=== PATIENT | male | born 1950 | race Caucasian/White ===

== ENCOUNTER 2020-10-23 09:38 | Inpatient (IN) ==
[2020-10-23] MEDS ORDERED: SODIUM CHLORIDE 0.9% 1,000 ML IV STA (10:25)
[2020-10-23 11:03] LABS: Eosinophils % 0.2 % (0.00-10.9); Hematocrit 42.7 VOL% (42.0-52.0); Hemoglobin 14.5 GM/DL (14.0-18.0); Immature Granulocytes % 0.4 %; Immature Granulocytes Absolute 0.02 #; Lymphocytes # 0.5 10*3/uL (1.4-4.0); Lymphocytes % 9.8 % (21.2-54.2); Mean Corpuscular Volume 94.9 FL (87-102); Mean Platelet Volume 10.5 FL (9.6-12.0); Monocytes % 7.3 % (1.7-12.7); Neutrophils % 82.3 % (38.7-73.9); Platelet Count 111 T/CUMM (130-400); Red Cell Distribution Width 14.4 % (9.3-17.3); White Blood Count 4.8 T/CUMM (4-12)
[2020-10-23 11:23] LABS: Microcytosis Slight; Ovalocytes Slight; Platelet Estimate Decreased
[2020-10-23 11:24] LABS: Albumin 3.3 G/DL (3.4-5.0); Bilirubin,Total 0.4 MG/DL (0.2-1.0); Calcium 8.5 MG/DL (8.5-10.1); Osmolality,Calculated 295.4 MOS/KG (273-304); Total Protein 6.3 G/DL (6.4-8.3)
[2020-10-23 11:28] LABS: Ferritin 842.1 ng/ml (26-388); Troponin I < 0.015 NG/ML (0.00-0.045)
[2020-10-23] MEDS ORDERED: cefTRIAXone 1,000 MG in SODIUM CHLORIDE 0.9% 100 ML IV STA (11:50)
[2020-10-23] MEDS ORDERED: SODIUM CHLORIDE 0.9% 1,000 ML IV SCH (14:52)
[2020-10-23] MEDS ORDERED: AZITHROMYCIN INJ 500 MG in SODIUM CHLORIDE 0.9% 250 ML IV ONE (14:52)
[2020-10-23] MEDS ORDERED: ONDANSETRON 4 MG/2 ML VIAL IV PRN (14:52)
[2020-10-23] MEDS: cefTRIAXone 1,000 MG in SYRINGE 1 EACH IV SCH (15:31)
[2020-10-23] MEDS: DEXAMETHASONE 4 MG/1 ML VIAL IV SCH (15:50)
[2020-10-23] MEDS: SODIUM CHLORIDE 0.9% 1,000 ML IV SCH ×2 (15:51→22:55)
[2020-10-23] MEDS: ZINC SULFATE 220 MG CAPSULE PO SCH (15:52)
[2020-10-23] MEDS: CHOLECALCIFEROL 1,000 UNIT TABLET PO SCH ×2 (15:52→16:15)
[2020-10-23] MEDS ORDERED: ALUMINUM/MAGNES/SIMETH MAX STR 30 ML UDCUP PO PRN (16:30)
[2020-10-23] MEDS: ACETAMINOPHEN 325 MG TABLET PO PRN ×2 (17:18→23:16)
[2020-10-23] MEDS: DOCUSATE SODIUM 100 MG CAPSULE PO SCH (21:47)
[2020-10-23] MEDS: TAMSULOSIN 0.4 MG CAPSULE PO SCH (21:47)
[2020-10-24] MEDS: DEXAMETHASONE 4 MG/1 ML VIAL IV SCH ×2 (02:46→16:00)
[2020-10-24 05:32] LABS: Hematocrit 39.7 VOL% (42.0-52.0); Hemoglobin 13.4 GM/DL (14.0-18.0); Immature Granulocytes % 0.6 %; Immature Granulocytes Absolute 0.02 #; Lymphocytes # 0.5 10*3/uL (1.4-4.0); Lymphocytes % 14.1 % (21.2-54.2); Mean Corpuscular HGB Conc 33.8 GM/DL (32-36); Mean Corpuscular Volume 94.1 FL (87-102); Mean Platelet Volume 10.3 FL (9.6-12.0); Monocytes % 3.2 % (1.7-12.7); Neutrophils % 82.1 % (38.7-73.9); Platelet Count 121 T/CUMM (130-400); Red Blood Count 4.22 MC/CUMM (3.8-5.5); Red Cell Distribution Width 14.4 % (9.3-17.3); White Blood Count 3.5 T/CUMM (4-12)
[2020-10-24 05:54] LABS: Burr Cells Slight; Microcytosis Slight; Ovalocytes Slight
[2020-10-24] MEDS: SODIUM CHLORIDE 0.9% 1,000 ML IV SCH ×3 (06:23→22:35)
[2020-10-24 06:28] LABS: Alanine Aminotransferase 51 U/L (16-61); Albumin 2.6 G/DL (3.4-5.0); Alkaline Phosphatase 67 U/L (45-117); Aspartate Amino Transferase 56 U/L (0-37); Bilirubin,Total < 0.39 MG/DL (0.2-1.0); Blood Urea Nitrogen 62 MG/DL (7-18); Estimated Glom Filtration Rate 26 ML/MIN; Glucose 132 MG/DL (74-106); Osmolality,Calculated 302.1 MOS/KG (273-304)
[2020-10-24 06:45] LABS: Bilirubin,Urine Negative (Negative); Blood, Urine Negative (Negative); Glucose,Urine (UA) Negative (Negative); Ketones,Urine Negative (Negative); Nitrite,Urine Negative (Negative); Protein,Urine 30 MG/DL; RBC,Urine 1 /HPF (0-4); Urine Appearance CLEAR (Clear); Urine Color Straw (Yellow); Urine Specific Gravity 1.011 (1.001-1.035); Urine Urobilinogen < 2.0 EU/DL (0.2-1.0); WBC,Urine 1 /HPF (0-6)
[2020-10-24] MEDS: MULTIVITAMIN (CENTRUM) TABLET PO SCH (10:07)
[2020-10-24] MEDS: TAMSULOSIN 0.4 MG CAPSULE PO SCH ×2 (10:07→20:28)
[2020-10-24] MEDS: CHOLECALCIFEROL 1,000 UNIT TABLET PO SCH ×2 (10:07)
[2020-10-24] MEDS: ASPIRIN EC 81 MG TABLET PO SCH (10:07)
[2020-10-24] MEDS: DOCUSATE SODIUM 100 MG CAPSULE PO SCH ×2 (10:07→20:28)
[2020-10-24] MEDS: ZINC SULFATE 220 MG CAPSULE PO SCH (10:07)
[2020-10-24] MEDS: AZITHROMYCIN 250 MG TABLET PO SCH (10:07)
[2020-10-24] MEDS: ATORVASTATIN 40 MG TABLET PO SCH (10:07)
[2020-10-24] MEDS: PANTOPRAZOLE 40 MG TABLET PO SCH (10:07)
[2020-10-24] MEDS: FLUTICASONE 50 MCG NASAL SPRAY 16 GM BOTTLE BOTH NARES SCH (10:07)
[2020-10-24] MEDS: ESCITALOPRAM 10 MG TABLET PO SCH (10:07)
[2020-10-24] MEDS: allopurinoL 300 MG TABLET PO SCH (10:08)
[2020-10-24] MEDS ORDERED: AZITHROMYCIN INJ 250 MG in SODIUM CHLORIDE 0.9% 250 ML IV SCH (14:30)
[2020-10-24] MEDS: cefTRIAXone 1,000 MG in SYRINGE 1 EACH IV SCH (17:00)
[2020-10-24] MEDS: ACETAMINOPHEN 325 MG TABLET PO PRN (20:28)
[2020-10-25] MEDS: DEXAMETHASONE 4 MG/1 ML VIAL IV SCH ×2 (02:54→15:40)
[2020-10-25 05:20] LABS: Basophils % 0.1 % (0.0-0.8); Hematocrit 39.6 VOL% (42.0-52.0); Hemoglobin 13.6 GM/DL (14.0-18.0); Immature Granulocytes Absolute 0.16 #; Lymphocytes # 0.6 10*3/uL (1.4-4.0); Lymphocytes % 3.8 % (21.2-54.2); Mean Corpuscular HGB Conc 34.3 GM/DL (32-36); Mean Platelet Volume 10.5 FL (9.6-12.0); Monocytes % 2.5 % (1.7-12.7); Neutrophils % 92.6 % (38.7-73.9); Platelet Count 132 T/CUMM (130-400); Red Blood Count 4.17 MC/CUMM (3.8-5.5); Red Cell Distribution Width 14.5 % (9.3-17.3); White Blood Count 15.7 T/CUMM (4-12)
[2020-10-25 05:45] LABS: Hypochromasia Slight; Lymphocytes 4 % (20-55); Microcytosis Slight; Ovalocytes Slight; Platelet Estimate Normal; Segmented Neutrophils 89 % (50-85); Total Cells Counted 100
[2020-10-25] MEDS: SODIUM CHLORIDE 0.9% 1,000 ML IV SCH ×3 (06:35→23:30)
[2020-10-25 06:51] LABS: Albumin 2.6 G/DL (3.4-5.0); Bilirubin,Total 0.6 MG/DL (0.2-1.0); Osmolality,Calculated 298.1 MOS/KG (273-304); Total Protein 5.9 G/DL (6.4-8.3)
[2020-10-25] MEDS: CHOLECALCIFEROL 1,000 UNIT TABLET PO SCH ×3 (08:49→08:51)
[2020-10-25] MEDS: PANTOPRAZOLE 40 MG TABLET PO SCH (08:49)
[2020-10-25] MEDS: ZINC SULFATE 220 MG CAPSULE PO SCH (08:49)
[2020-10-25] MEDS: ASPIRIN EC 81 MG TABLET PO SCH (08:49)
[2020-10-25] MEDS: allopurinoL 300 MG TABLET PO SCH (08:49)
[2020-10-25] MEDS: DOCUSATE SODIUM 100 MG CAPSULE PO SCH ×2 (08:49→20:30)
[2020-10-25] MEDS: ATORVASTATIN 40 MG TABLET PO SCH (08:49)
[2020-10-25] MEDS: AZITHROMYCIN 250 MG TABLET PO SCH (08:49)
[2020-10-25] MEDS: TAMSULOSIN 0.4 MG CAPSULE PO SCH ×2 (08:50→20:30)
[2020-10-25] MEDS: ESCITALOPRAM 10 MG TABLET PO SCH (08:50)
[2020-10-25] MEDS: MULTIVITAMIN (CENTRUM) TABLET PO SCH (08:50)
[2020-10-25] MEDS: FLUTICASONE 50 MCG NASAL SPRAY 16 GM BOTTLE BOTH NARES SCH (08:50)
[2020-10-25] MEDS ORDERED: SODIUM CHLORIDE 0.9% 1,000 ML IV PRN (13:09)
[2020-10-25] MEDS: cefTRIAXone 1,000 MG in SYRINGE 1 EACH IV SCH (15:40)
[2020-10-26] MEDS: DEXAMETHASONE 4 MG/1 ML VIAL IV SCH ×2 (02:10→16:02)
[2020-10-26 07:20] LABS: Basophils % 0.1 % (0.0-0.8); Hematocrit 37.8 VOL% (42.0-52.0); Hemoglobin 12.9 GM/DL (14.0-18.0); Immature Granulocytes % 2.1 %; Immature Granulocytes Absolute 0.34 #; Lymphocytes # 0.5 10*3/uL (1.4-4.0); Lymphocytes % 3.2 % (21.2-54.2); Mean Corpuscular HGB Conc 34.1 GM/DL (32-36); Mean Platelet Volume 10.1 FL (9.6-12.0); Monocytes % 2.5 % (1.7-12.7); Neutrophils % 92.1 % (38.7-73.9); Platelet Count 148 T/CUMM (130-400); Red Blood Count 3.98 MC/CUMM (3.8-5.5); Red Cell Distribution Width 14.6 % (9.3-17.3)
[2020-10-26 07:40] LABS: Hypochromasia Slight; Lymphocytes 1 % (20-55); Microcytosis Slight; Ovalocytes Slight; Segmented Neutrophils 98 % (50-85); Total Cells Counted 100
[2020-10-26 07:41] LABS: Acanthocytes Few; Platelet Estimate Adequate
[2020-10-26 07:47] LABS: Albumin 2.5 G/DL (3.4-5.0); Bilirubin,Total 0.4 MG/DL (0.2-1.0); Calcium 7.8 MG/DL (8.5-10.1); Osmolality,Calculated 302.7 MOS/KG (273-304); Total Protein 5.8 G/DL (6.4-8.3)
[2020-10-26] MEDS: ZINC SULFATE 220 MG CAPSULE PO SCH (10:12)
[2020-10-26] MEDS: ESCITALOPRAM 10 MG TABLET PO SCH (10:12)
[2020-10-26] MEDS: AZITHROMYCIN 250 MG TABLET PO SCH (10:12)
[2020-10-26] MEDS: FLUTICASONE 50 MCG NASAL SPRAY 16 GM BOTTLE BOTH NARES SCH (10:12)
[2020-10-26] MEDS: ATORVASTATIN 40 MG TABLET PO SCH (10:12)
[2020-10-26] MEDS: DOCUSATE SODIUM 100 MG CAPSULE PO SCH ×2 (10:12→20:25)
[2020-10-26] MEDS: allopurinoL 300 MG TABLET PO SCH (10:12)
[2020-10-26] MEDS: MULTIVITAMIN (CENTRUM) TABLET PO SCH (10:12)
[2020-10-26] MEDS: CHOLECALCIFEROL 1,000 UNIT TABLET PO SCH ×2 (10:12)
[2020-10-26] MEDS: PANTOPRAZOLE 40 MG TABLET PO SCH (10:12)
[2020-10-26] MEDS: TAMSULOSIN 0.4 MG CAPSULE PO SCH ×2 (10:12→20:25)
[2020-10-26] MEDS: ASPIRIN EC 81 MG TABLET PO SCH (10:12)
[2020-10-26] MEDS: cefTRIAXone 1,000 MG in SYRINGE 1 EACH IV SCH (16:02)
[2020-10-26] MEDS: ACETAMINOPHEN 325 MG TABLET PO PRN (20:40)
[2020-10-27] MEDS: DEXAMETHASONE 4 MG/1 ML VIAL IV SCH ×2 (02:05→15:15)
[2020-10-27 06:42] LABS: Basophils % 0.2 % (0.0-0.8); Hematocrit 38.8 VOL% (42.0-52.0); Hemoglobin 13.3 GM/DL (14.0-18.0); Immature Granulocytes Absolute 0.48 #; Lymphocytes # 0.5 10*3/uL (1.4-4.0); Lymphocytes % 4.4 % (21.2-54.2); Mean Corpuscular HGB Conc 34.3 GM/DL (32-36); Mean Corpuscular Volume 94.6 FL (87-102); Mean Platelet Volume 9.9 FL (9.6-12.0); Monocytes % 2.2 % (1.7-12.7); Neutrophils % 89.2 % (38.7-73.9); Platelet Count 156 T/CUMM (130-400); Red Cell Distribution Width 14.5 % (9.3-17.3); White Blood Count 12.1 T/CUMM (4-12)
[2020-10-27 08:19] LABS: Albumin 2.5 G/DL (3.4-5.0); Bilirubin,Total 0.4 MG/DL (0.2-1.0); Calcium 8.2 MG/DL (8.5-10.1); Osmolality,Calculated 295.3 MOS/KG (273-304); Total Protein 6.1 G/DL (6.4-8.3)
[2020-10-27 09:03] LABS: Band Neutrophils 1 % (0-10); Lymphocytes 1 % (20-55); Polychromasia Slight; Segmented Neutrophils 93 % (50-85); Total Cells Counted 100
[2020-10-27 09:04] LABS: Platelet Estimate Adequate
[2020-10-27] MEDS: MULTIVITAMIN (CENTRUM) TABLET PO SCH (09:13)
[2020-10-27] MEDS: allopurinoL 300 MG TABLET PO SCH (09:13)
[2020-10-27] MEDS: ATORVASTATIN 40 MG TABLET PO SCH (09:13)
[2020-10-27] MEDS: ESCITALOPRAM 10 MG TABLET PO SCH (09:13)
[2020-10-27] MEDS: DOCUSATE SODIUM 100 MG CAPSULE PO SCH ×2 (09:13→20:40)
[2020-10-27] MEDS: CHOLECALCIFEROL 1,000 UNIT TABLET PO SCH ×2 (09:13→09:54)
[2020-10-27] MEDS: ZINC SULFATE 220 MG CAPSULE PO SCH (09:13)
[2020-10-27] MEDS: PANTOPRAZOLE 40 MG TABLET PO SCH (09:13)
[2020-10-27] MEDS: ASPIRIN EC 81 MG TABLET PO SCH (09:13)
[2020-10-27] MEDS: TAMSULOSIN 0.4 MG CAPSULE PO SCH ×2 (09:13→20:40)
[2020-10-27] MEDS: AZITHROMYCIN 250 MG TABLET PO SCH (09:13)
[2020-10-27] MEDS: FLUTICASONE 50 MCG NASAL SPRAY 16 GM BOTTLE BOTH NARES SCH (09:14)
[2020-10-27] MEDS: SODIUM CHLORIDE 0.65% NASAL SPRAY 45 ML BOTTLE BOTH NARES PRN (14:01)
[2020-10-27] MEDS: cefTRIAXone 1,000 MG in SYRINGE 1 EACH IV SCH (15:17)
[2020-10-27] MEDS: ENOXAPARIN 30 MG/0.3 ML SYRINGE SUBCUT SCH (22:55)
[2020-10-28] MEDS: DEXAMETHASONE 4 MG/1 ML VIAL IV SCH ×2 (02:20→15:20)
[2020-10-28 06:48] LABS: Basophils # 0.1 10*3/uL (0.0-0.2); Basophils % 0.3 % (0.0-0.8); Hematocrit 38.2 VOL% (42.0-52.0); Hemoglobin 13.2 GM/DL (14.0-18.0); Immature Granulocytes % 3.9 %; Immature Granulocytes Absolute 0.62 #; Lymphocytes # 0.7 10*3/uL (1.4-4.0); Lymphocytes % 4.5 % (21.2-54.2); Mean Corpuscular HGB Conc 34.6 GM/DL (32-36); Mean Corpuscular Volume 94.1 FL (87-102); Mean Platelet Volume 10.2 FL (9.6-12.0); Monocytes % 3.7 % (1.7-12.7); NRBC # 0.02 10*3/uL; Neutrophils % 87.6 % (38.7-73.9); Platelet Count 180 T/CUMM (130-400); Red Blood Count 4.06 MC/CUMM (3.8-5.5); Red Cell Distribution Width 14.2 % (9.3-17.3); White Blood Count 16.1 T/CUMM (4-12)
[2020-10-28 07:05] LABS: Albumin 2.6 G/DL (3.4-5.0); Bilirubin,Total 0.8 MG/DL (0.2-1.0); Calcium 8.2 MG/DL (8.5-10.1); Osmolality,Calculated 296.3 MOS/KG (273-304); Total Protein 6.2 G/DL (6.4-8.3)
[2020-10-28] MEDS: AZITHROMYCIN 250 MG TABLET PO SCH (09:40)
[2020-10-28] MEDS: allopurinoL 300 MG TABLET PO SCH (09:40)
[2020-10-28] MEDS: ASPIRIN EC 81 MG TABLET PO SCH (09:40)
[2020-10-28] MEDS: FLUTICASONE 50 MCG NASAL SPRAY 16 GM BOTTLE BOTH NARES SCH (09:40)
[2020-10-28] MEDS: DOCUSATE SODIUM 100 MG CAPSULE PO SCH ×2 (09:40→20:20)
[2020-10-28] MEDS: CHOLECALCIFEROL 1,000 UNIT TABLET PO SCH ×2 (09:40→10:11)
[2020-10-28] MEDS: PANTOPRAZOLE 40 MG TABLET PO SCH (09:40)
[2020-10-28] MEDS: ATORVASTATIN 40 MG TABLET PO SCH (09:40)
[2020-10-28] MEDS: MULTIVITAMIN (CENTRUM) TABLET PO SCH (09:40)
[2020-10-28] MEDS: ZINC SULFATE 220 MG CAPSULE PO SCH (09:40)
[2020-10-28] MEDS: TAMSULOSIN 0.4 MG CAPSULE PO SCH ×2 (09:40→20:20)
[2020-10-28] MEDS: ESCITALOPRAM 10 MG TABLET PO SCH (09:40)
[2020-10-28 12:36] LABS: Lymphocytes 6 % (20-55); Segmented Neutrophils 93 % (50-85); Total Cells Counted 100
[2020-10-28 12:37] LABS: Anisocytosis 1+; Microcytosis Slight; Platelet Estimate Adequate
[2020-10-28] MEDS: cefTRIAXone 1,000 MG in SYRINGE 1 EACH IV SCH (15:20)
[2020-10-28] MEDS: ENOXAPARIN 30 MG/0.3 ML SYRINGE SUBCUT SCH (20:20)
[2020-10-28] MEDS: ACETAMINOPHEN 325 MG TABLET PO PRN (20:20)
[2020-10-29] MEDS: DEXAMETHASONE 4 MG/1 ML VIAL IV SCH ×2 (02:35→14:07)
[2020-10-29] MEDS: DOCUSATE SODIUM 100 MG CAPSULE PO SCH ×2 (09:18→20:30)
[2020-10-29] MEDS: ESCITALOPRAM 10 MG TABLET PO SCH (09:18)
[2020-10-29] MEDS: allopurinoL 300 MG TABLET PO SCH (09:18)
[2020-10-29] MEDS: ATORVASTATIN 40 MG TABLET PO SCH (09:18)
[2020-10-29] MEDS: MULTIVITAMIN (CENTRUM) TABLET PO SCH (09:18)
[2020-10-29] MEDS: TAMSULOSIN 0.4 MG CAPSULE PO SCH ×2 (09:18→20:30)
[2020-10-29] MEDS: PANTOPRAZOLE 40 MG TABLET PO SCH (09:18)
[2020-10-29] MEDS: ASPIRIN EC 81 MG TABLET PO SCH (09:18)
[2020-10-29] MEDS: AZITHROMYCIN 250 MG TABLET PO SCH (09:18)
[2020-10-29] MEDS: FLUTICASONE 50 MCG NASAL SPRAY 16 GM BOTTLE BOTH NARES SCH (09:18)
[2020-10-29] MEDS: CHOLECALCIFEROL 1,000 UNIT TABLET PO SCH ×2 (09:18→09:19)
[2020-10-29] MEDS: ZINC SULFATE 220 MG CAPSULE PO SCH (09:19)
[2020-10-29] MEDS: cefTRIAXone 1,000 MG in SYRINGE 1 EACH IV SCH (14:07)
[2020-10-29] MEDS: ACETAMINOPHEN 325 MG TABLET PO PRN (20:30)
[2020-10-29] MEDS: ENOXAPARIN 30 MG/0.3 ML SYRINGE SUBCUT SCH (20:30)
[2020-10-30] MEDS: DEXAMETHASONE 4 MG/1 ML VIAL IV SCH ×2 (01:33→14:01)
[2020-10-30 06:31] LABS: Basophils % 0.2 % (0.0-0.8); Hematocrit 35.3 VOL% (42.0-52.0); Hemoglobin 12.1 GM/DL (14.0-18.0); Immature Granulocytes % 4.3 %; Immature Granulocytes Absolute 0.47 #; Lymphocytes # 0.3 10*3/uL (1.4-4.0); Lymphocytes % 3.1 % (21.2-54.2); Mean Corpuscular HGB Conc 34.3 GM/DL (32-36); Mean Corpuscular Volume 92.7 FL (87-102); Mean Platelet Volume 10.5 FL (9.6-12.0); Monocytes % 2.1 % (1.7-12.7); NRBC # 0.02 10*3/uL; Neutrophils % 90.3 % (38.7-73.9); Platelet Count 168 T/CUMM (130-400); Red Blood Count 3.81 MC/CUMM (3.8-5.5); Red Cell Distribution Width 14.2 % (9.3-17.3); White Blood Count 10.8 T/CUMM (4-12)
[2020-10-30 06:56] LABS: Lymphocytes 4 % (20-55); Segmented Neutrophils 94 % (50-85); Total Cells Counted 100
[2020-10-30 06:57] LABS: Anisocytosis 1+; Burr Cells Few; Hypersegmented Neutrophil Few; Macrocytosis Slight; Platelet Estimate Normal
[2020-10-30 07:01] LABS: Albumin 2.2 G/DL (3.4-5.0); Bilirubin,Total 1.7 MG/DL (0.2-1.0); Calcium 8.3 MG/DL (8.5-10.1); Osmolality,Calculated 299.4 MOS/KG (273-304); Total Protein 6.1 G/DL (6.4-8.3)
[2020-10-30] MEDS: TAMSULOSIN 0.4 MG CAPSULE PO SCH ×2 (08:48→20:30)
[2020-10-30] MEDS: ZINC SULFATE 220 MG CAPSULE PO SCH (08:48)
[2020-10-30] MEDS: PANTOPRAZOLE 40 MG TABLET PO SCH (08:48)
[2020-10-30] MEDS: ATORVASTATIN 40 MG TABLET PO SCH (08:48)
[2020-10-30] MEDS: ASPIRIN EC 81 MG TABLET PO SCH (08:48)
[2020-10-30] MEDS: CHOLECALCIFEROL 1,000 UNIT TABLET PO SCH ×2 (08:48→08:49)
[2020-10-30] MEDS: MULTIVITAMIN (CENTRUM) TABLET PO SCH (08:48)
[2020-10-30] MEDS: AZITHROMYCIN 250 MG TABLET PO SCH (08:48)
[2020-10-30] MEDS: DOCUSATE SODIUM 100 MG CAPSULE PO SCH ×2 (08:48→20:30)
[2020-10-30] MEDS: allopurinoL 300 MG TABLET PO SCH (08:48)
[2020-10-30] MEDS: ESCITALOPRAM 10 MG TABLET PO SCH (08:48)
[2020-10-30] MEDS: FLUTICASONE 50 MCG NASAL SPRAY 16 GM BOTTLE BOTH NARES SCH (08:48)
[2020-10-30] MEDS: cefTRIAXone 1,000 MG in SYRINGE 1 EACH IV SCH (14:02)
[2020-10-30] MEDS: ACETAMINOPHEN 325 MG TABLET PO PRN (20:30)
[2020-10-30] MEDS: ENOXAPARIN 30 MG/0.3 ML SYRINGE SUBCUT SCH (20:30)
[2020-10-31] MEDS: DEXAMETHASONE 4 MG/1 ML VIAL IV SCH ×2 (02:35→13:59)
[2020-10-31 06:19] LABS: Basophils % 0.2 % (0.0-0.8); Hematocrit 37.7 VOL% (42.0-52.0); Hemoglobin 12.9 GM/DL (14.0-18.0); Immature Granulocytes % 4.6 %; Immature Granulocytes Absolute 0.45 #; Lymphocytes # 0.3 10*3/uL (1.4-4.0); Mean Corpuscular HGB Conc 34.2 GM/DL (32-36); Mean Corpuscular Volume 92.9 FL (87-102); Mean Platelet Volume 10.3 FL (9.6-12.0); Monocytes % 2.9 % (1.7-12.7); Neutrophils % 89.3 % (38.7-73.9); Platelet Count 186 T/CUMM (130-400); Red Blood Count 4.06 MC/CUMM (3.8-5.5); Red Cell Distribution Width 14.2 % (9.3-17.3); White Blood Count 9.9 T/CUMM (4-12)
[2020-10-31 06:41] LABS: Albumin 2.2 G/DL (3.4-5.0); Bilirubin,Total 1.7 MG/DL (0.2-1.0); Calcium 8.4 MG/DL (8.5-10.1); Osmolality,Calculated 302.1 MOS/KG (273-304); Total Protein 6.2 G/DL (6.4-8.3)
[2020-10-31 06:58] LABS: Hypochromasia 1+; Lymphocytes 5 % (20-55); Microcytosis 1+; Ovalocytes Slight; Platelet Estimate Adequate; Segmented Neutrophils 92 % (50-85); Total Cells Counted 100
[2020-10-31] MEDS: CHOLECALCIFEROL 1,000 UNIT TABLET PO SCH ×2 (08:44→08:45)
[2020-10-31] MEDS: ASPIRIN EC 81 MG TABLET PO SCH (08:44)
[2020-10-31] MEDS: MULTIVITAMIN (CENTRUM) TABLET PO SCH (08:44)
[2020-10-31] MEDS: ESCITALOPRAM 10 MG TABLET PO SCH (08:45)
[2020-10-31] MEDS: DOCUSATE SODIUM 100 MG CAPSULE PO SCH ×2 (08:45→20:40)
[2020-10-31] MEDS: PANTOPRAZOLE 40 MG TABLET PO SCH (08:45)
[2020-10-31] MEDS: TAMSULOSIN 0.4 MG CAPSULE PO SCH ×2 (08:45→20:40)
[2020-10-31] MEDS: AZITHROMYCIN 250 MG TABLET PO SCH (08:45)
[2020-10-31] MEDS: FLUTICASONE 50 MCG NASAL SPRAY 16 GM BOTTLE BOTH NARES SCH (08:45)
[2020-10-31] MEDS: ZINC SULFATE 220 MG CAPSULE PO SCH (08:45)
[2020-10-31] MEDS: ATORVASTATIN 40 MG TABLET PO SCH (08:45)
[2020-10-31] MEDS: allopurinoL 300 MG TABLET PO SCH (08:45)
[2020-10-31] MEDS: ACETAMINOPHEN 325 MG TABLET PO PRN (20:40)
[2020-10-31] MEDS: ENOXAPARIN 30 MG/0.3 ML SYRINGE SUBCUT SCH (20:40)
[2020-11-01] MEDS: DEXAMETHASONE 4 MG/1 ML VIAL IV SCH ×2 (01:40→15:07)
[2020-11-01 06:06] LABS: Basophils % 0.4 % (0.0-0.8); Hematocrit 37.9 VOL% (42.0-52.0); Hemoglobin 12.8 GM/DL (14.0-18.0); Immature Granulocytes % 4.9 %; Immature Granulocytes Absolute 0.51 #; Lymphocytes # 0.5 10*3/uL (1.4-4.0); Lymphocytes % 4.5 % (21.2-54.2); Mean Corpuscular HGB Conc 33.8 GM/DL (32-36); Mean Corpuscular Volume 94.5 FL (87-102); Mean Platelet Volume 10.7 FL (9.6-12.0); Monocytes % 3.2 % (1.7-12.7); Platelet Count 182 T/CUMM (130-400); Red Blood Count 4.01 MC/CUMM (3.8-5.5); White Blood Count 10.4 T/CUMM (4-12)
[2020-11-01 06:13] LABS: Albumin 2.2 G/DL (3.4-5.0); Bilirubin,Total 0.9 MG/DL (0.2-1.0); Calcium 8.1 MG/DL (8.5-10.1); Osmolality,Calculated 301.1 MOS/KG (273-304)
[2020-11-01 06:51] LABS: Hypochromasia 1+; Lymphocytes 4 % (20-55); Metamyelocytes 1 %; Segmented Neutrophils 94 % (50-85); Total Cells Counted 100
[2020-11-01 06:52] LABS: Acanthocytes Few; Microcytosis 1+; Ovalocytes Slight
[2020-11-01 06:53] LABS: Platelet Estimate Adequate
[2020-11-01] MEDS: allopurinoL 300 MG TABLET PO SCH (09:11)
[2020-11-01] MEDS: ESCITALOPRAM 10 MG TABLET PO SCH (09:11)
[2020-11-01] MEDS: TAMSULOSIN 0.4 MG CAPSULE PO SCH ×2 (09:11→20:12)
[2020-11-01] MEDS: DOCUSATE SODIUM 100 MG CAPSULE PO SCH ×2 (09:11→20:12)
[2020-11-01] MEDS: PANTOPRAZOLE 40 MG TABLET PO SCH (09:11)
[2020-11-01] MEDS: CHOLECALCIFEROL 1,000 UNIT TABLET PO SCH ×2 (09:11→09:12)
[2020-11-01] MEDS: MULTIVITAMIN (CENTRUM) TABLET PO SCH (09:11)
[2020-11-01] MEDS: ZINC SULFATE 220 MG CAPSULE PO SCH (09:11)
[2020-11-01] MEDS: ASPIRIN EC 81 MG TABLET PO SCH (09:11)
[2020-11-01] MEDS: ATORVASTATIN 40 MG TABLET PO SCH (09:11)
[2020-11-01] MEDS: FLUTICASONE 50 MCG NASAL SPRAY 16 GM BOTTLE BOTH NARES SCH (09:12)
[2020-11-01] MEDS: ENOXAPARIN 30 MG/0.3 ML SYRINGE SUBCUT SCH (20:12)
[2020-11-02] MEDS: DEXAMETHASONE 4 MG/1 ML VIAL IV SCH ×2 (01:50→14:03)
[2020-11-02 05:23] LABS: Basophils % 0.1 % (0.0-0.8); Hematocrit 38.3 VOL% (42.0-52.0); Immature Granulocytes Absolute 0.36 #; Lymphocytes # 0.3 10*3/uL (1.4-4.0); Lymphocytes % 3.8 % (21.2-54.2); Mean Corpuscular HGB Conc 33.9 GM/DL (32-36); Mean Corpuscular Volume 95.8 FL (87-102); Mean Platelet Volume 10.6 FL (9.6-12.0); Monocytes % 1.3 % (1.7-12.7); Neutrophils % 89.8 % (38.7-73.9); Platelet Count 170 T/CUMM (130-400); Red Cell Distribution Width 14.3 % (9.3-17.3); White Blood Count 7.2 T/CUMM (4-12)
[2020-11-02 05:40] LABS: Calcium 8.3 MG/DL (8.5-10.1); Osmolality,Calculated 302.3 MOS/KG (273-304)
[2020-11-02 06:17] LABS: Acanthocytes Few; Hypochromasia 1+; Lymphocytes 3 % (20-55); Metamyelocytes 1 %; Microcytosis 1+; Segmented Neutrophils 94 % (50-85); Total Cells Counted 100
[2020-11-02 06:18] LABS: Ovalocytes Slight; Platelet Estimate Adequate
[2020-11-02] MEDS: CHOLECALCIFEROL 1,000 UNIT TABLET PO SCH ×2 (08:59)
[2020-11-02] MEDS: ASPIRIN EC 81 MG TABLET PO SCH (08:59)
[2020-11-02] MEDS: ATORVASTATIN 40 MG TABLET PO SCH (08:59)
[2020-11-02] MEDS: PANTOPRAZOLE 40 MG TABLET PO SCH (08:59)
[2020-11-02] MEDS: TAMSULOSIN 0.4 MG CAPSULE PO SCH ×2 (08:59→20:18)
[2020-11-02] MEDS: MULTIVITAMIN (CENTRUM) TABLET PO SCH (08:59)
[2020-11-02] MEDS: ESCITALOPRAM 10 MG TABLET PO SCH (08:59)
[2020-11-02] MEDS: FLUTICASONE 50 MCG NASAL SPRAY 16 GM BOTTLE BOTH NARES SCH (08:59)
[2020-11-02] MEDS: DOCUSATE SODIUM 100 MG CAPSULE PO SCH ×2 (08:59→20:18)
[2020-11-02] MEDS: ZINC SULFATE 220 MG CAPSULE PO SCH (09:00)
[2020-11-02] MEDS: allopurinoL 300 MG TABLET PO SCH (09:00)
[2020-11-02] MEDS: ENOXAPARIN 30 MG/0.3 ML SYRINGE SUBCUT SCH (20:18)
[2020-11-02] MEDS: ACETAMINOPHEN 325 MG TABLET PO PRN (20:22)
[2020-11-03] MEDS: DEXAMETHASONE 4 MG/1 ML VIAL IV SCH ×2 (03:02→14:25)
[2020-11-03 06:19] LABS: Basophils % 0.1 % (0.0-0.8); Eosinophils % 0.1 % (0.00-10.9); Hematocrit 34.9 VOL% (42.0-52.0); Immature Granulocytes % 2.7 %; Immature Granulocytes Absolute 0.32 #; Lymphocytes # 0.5 10*3/uL (1.4-4.0); Lymphocytes % 3.8 % (21.2-54.2); Mean Corpuscular HGB Conc 34.4 GM/DL (32-36); Mean Corpuscular Volume 93.3 FL (87-102); Mean Platelet Volume 10.2 FL (9.6-12.0); Monocytes % 2.5 % (1.7-12.7); Neutrophils % 90.8 % (38.7-73.9); Platelet Count 168 T/CUMM (130-400); Red Blood Count 3.74 MC/CUMM (3.8-5.5); Red Cell Distribution Width 14.3 % (9.3-17.3); White Blood Count 12.1 T/CUMM (4-12)
[2020-11-03 06:47] LABS: Calcium 8.2 MG/DL (8.5-10.1); Osmolality,Calculated 297.3 MOS/KG (273-304)
[2020-11-03 06:55] LABS: Lymphocytes 4 % (20-55); Platelet Estimate Normal; Segmented Neutrophils 93 % (50-85); Total Cells Counted 100
[2020-11-03] MEDS: ASPIRIN EC 81 MG TABLET PO SCH (08:01)
[2020-11-03] MEDS: MULTIVITAMIN (CENTRUM) TABLET PO SCH (08:01)
[2020-11-03] MEDS: CHOLECALCIFEROL 1,000 UNIT TABLET PO SCH ×2 (08:02)
[2020-11-03] MEDS: DOCUSATE SODIUM 100 MG CAPSULE PO SCH ×2 (08:02→20:21)
[2020-11-03] MEDS: TAMSULOSIN 0.4 MG CAPSULE PO SCH ×2 (08:02→20:21)
[2020-11-03] MEDS: PANTOPRAZOLE 40 MG TABLET PO SCH (08:02)
[2020-11-03] MEDS: ATORVASTATIN 40 MG TABLET PO SCH (08:02)
[2020-11-03] MEDS: ESCITALOPRAM 10 MG TABLET PO SCH (08:02)
[2020-11-03] MEDS: ZINC SULFATE 220 MG CAPSULE PO SCH (08:03)
[2020-11-03] MEDS: allopurinoL 300 MG TABLET PO SCH (08:03)
[2020-11-03] MEDS: FLUTICASONE 50 MCG NASAL SPRAY 16 GM BOTTLE BOTH NARES SCH (08:15)
[2020-11-03] MEDS: ACETAMINOPHEN 325 MG TABLET PO PRN (16:46)
[2020-11-03] MEDS: ENOXAPARIN 30 MG/0.3 ML SYRINGE SUBCUT SCH (20:21)
[2020-11-04] MEDS: DEXAMETHASONE 4 MG/1 ML VIAL IV SCH ×2 (03:11→13:57)
[2020-11-04] MEDS: CHOLECALCIFEROL 1,000 UNIT TABLET PO SCH ×2 (08:00)
[2020-11-04] MEDS: DOCUSATE SODIUM 100 MG CAPSULE PO SCH ×2 (08:00→20:30)
[2020-11-04] MEDS: ESCITALOPRAM 10 MG TABLET PO SCH (08:00)
[2020-11-04] MEDS: MULTIVITAMIN (CENTRUM) TABLET PO SCH (08:00)
[2020-11-04] MEDS: ASPIRIN EC 81 MG TABLET PO SCH (08:00)
[2020-11-04] MEDS: TAMSULOSIN 0.4 MG CAPSULE PO SCH ×2 (08:00→20:31)
[2020-11-04] MEDS: ZINC SULFATE 220 MG CAPSULE PO SCH (08:00)
[2020-11-04] MEDS: allopurinoL 300 MG TABLET PO SCH (08:00)
[2020-11-04] MEDS: PANTOPRAZOLE 40 MG TABLET PO SCH (08:00)
[2020-11-04] MEDS: ATORVASTATIN 40 MG TABLET PO SCH (08:00)
[2020-11-04] MEDS: FLUTICASONE 50 MCG NASAL SPRAY 16 GM BOTTLE BOTH NARES SCH (08:10)
[2020-11-04] MEDS: ACETAMINOPHEN 325 MG TABLET PO PRN ×2 (13:07→20:31)
[2020-11-04] MEDS: ENOXAPARIN 30 MG/0.3 ML SYRINGE SUBCUT SCH (20:32)
[2020-11-04] MEDS: METOPROLOL TARTRATE 25 MG TABLET PO SCH (20:33)
[2020-11-05] MEDS: DEXAMETHASONE 4 MG/1 ML VIAL IV SCH ×2 (02:57→14:53)
[2020-11-05] MEDS: allopurinoL 300 MG TABLET PO SCH (09:22)
[2020-11-05] MEDS: ATORVASTATIN 40 MG TABLET PO SCH (09:22)
[2020-11-05] MEDS: METOPROLOL TARTRATE 25 MG TABLET PO SCH ×2 (09:22→20:23)
[2020-11-05] MEDS: ESCITALOPRAM 10 MG TABLET PO SCH (09:22)
[2020-11-05] MEDS: TAMSULOSIN 0.4 MG CAPSULE PO SCH ×2 (09:22→20:23)
[2020-11-05] MEDS: MULTIVITAMIN (CENTRUM) TABLET PO SCH (09:22)
[2020-11-05] MEDS: FLUTICASONE 50 MCG NASAL SPRAY 16 GM BOTTLE BOTH NARES SCH (09:22)
[2020-11-05] MEDS: ASPIRIN EC 81 MG TABLET PO SCH (09:22)
[2020-11-05] MEDS: DOCUSATE SODIUM 100 MG CAPSULE PO SCH ×2 (09:22→20:23)
[2020-11-05] MEDS: ZINC SULFATE 220 MG CAPSULE PO SCH (09:22)
[2020-11-05] MEDS: PANTOPRAZOLE 40 MG TABLET PO SCH (09:22)
[2020-11-05] MEDS: CHOLECALCIFEROL 1,000 UNIT TABLET PO SCH ×2 (10:22→10:23)
[2020-11-05] MEDS: ENOXAPARIN 30 MG/0.3 ML SYRINGE SUBCUT SCH (20:23)
[2020-11-06] MEDS: DEXAMETHASONE 4 MG/1 ML VIAL IV SCH ×2 (03:38→14:17)
[2020-11-06 07:06] LABS: Basophils % 0.2 % (0.0-0.8); Hematocrit 36.7 VOL% (42.0-52.0); Hemoglobin 12.4 GM/DL (14.0-18.0); Immature Granulocytes % 1.8 %; Immature Granulocytes Absolute 0.18 #; Lymphocytes # 0.3 10*3/uL (1.4-4.0); Lymphocytes % 3.2 % (21.2-54.2); Mean Corpuscular HGB Conc 33.8 GM/DL (32-36); Mean Corpuscular Volume 95.1 FL (87-102); Monocytes % 2.2 % (1.7-12.7); Neutrophils % 92.6 % (38.7-73.9); Platelet Count 150 T/CUMM (130-400); Red Blood Count 3.86 MC/CUMM (3.8-5.5); Red Cell Distribution Width 14.3 % (9.3-17.3)
[2020-11-06 07:26] LABS: Calcium 8.6 MG/DL (8.5-10.1); Osmolality,Calculated 300.4 MOS/KG (273-304)
[2020-11-06 07:32] LABS: Hypochromasia 1+; Lymphocytes 6 % (20-55); Microcytosis 1+; Platelet Estimate Adequate; Segmented Neutrophils 91 % (50-85); Total Cells Counted 100
[2020-11-06] MEDS: ASPIRIN EC 81 MG TABLET PO SCH (09:51)
[2020-11-06] MEDS: DOCUSATE SODIUM 100 MG CAPSULE PO SCH ×2 (09:52→20:31)
[2020-11-06] MEDS: PANTOPRAZOLE 40 MG TABLET PO SCH (09:52)
[2020-11-06] MEDS: METOPROLOL TARTRATE 25 MG TABLET PO SCH ×2 (09:52→20:31)
[2020-11-06] MEDS: ZINC SULFATE 220 MG CAPSULE PO SCH (09:52)
[2020-11-06] MEDS: ATORVASTATIN 40 MG TABLET PO SCH (09:52)
[2020-11-06] MEDS: ESCITALOPRAM 10 MG TABLET PO SCH (09:52)
[2020-11-06] MEDS: CHOLECALCIFEROL 1,000 UNIT TABLET PO SCH ×2 (09:52)
[2020-11-06] MEDS: MULTIVITAMIN (CENTRUM) TABLET PO SCH (09:52)
[2020-11-06] MEDS: allopurinoL 300 MG TABLET PO SCH (09:52)
[2020-11-06] MEDS: FLUTICASONE 50 MCG NASAL SPRAY 16 GM BOTTLE BOTH NARES SCH (09:52)
[2020-11-06] MEDS: TAMSULOSIN 0.4 MG CAPSULE PO SCH ×2 (09:52→20:31)
[2020-11-06] MEDS: APIXABAN 5 MG TABLET PO SCH ×2 (10:29→20:31)
[2020-11-07] MEDS: DEXAMETHASONE 4 MG/1 ML VIAL IV SCH ×2 (03:07→15:53)
[2020-11-07] MEDS: DOCUSATE SODIUM 100 MG CAPSULE PO SCH ×3 (03:26→20:05)
[2020-11-07 06:12] LABS: Basophils % 0.2 % (0.0-0.8); Hematocrit 37.7 VOL% (42.0-52.0); Hemoglobin 12.8 GM/DL (14.0-18.0); Immature Granulocytes Absolute 0.26 #; Lymphocytes # 0.4 10*3/uL (1.4-4.0); Lymphocytes % 3.4 % (21.2-54.2); Mean Corpuscular Volume 94.7 FL (87-102); Monocytes % 3.1 % (1.7-12.7); Neutrophils % 91.3 % (38.7-73.9); Platelet Count 154 T/CUMM (130-400); Red Blood Count 3.98 MC/CUMM (3.8-5.5); Red Cell Distribution Width 14.1 % (9.3-17.3); White Blood Count 12.8 T/CUMM (4-12)
[2020-11-07 06:34] LABS: Lymphocytes 2 % (20-55); Platelet Estimate Normal; Segmented Neutrophils 96 % (50-85); Total Cells Counted 100
[2020-11-07 06:54] LABS: Calcium 8.6 MG/DL (8.5-10.1); Osmolality,Calculated 297.7 MOS/KG (273-304)
[2020-11-07] MEDS: MULTIVITAMIN (CENTRUM) TABLET PO SCH (08:03)
[2020-11-07] MEDS: TAMSULOSIN 0.4 MG CAPSULE PO SCH ×2 (08:03→20:28)
[2020-11-07] MEDS: APIXABAN 5 MG TABLET PO SCH ×2 (08:03→20:28)
[2020-11-07] MEDS: ASPIRIN EC 81 MG TABLET PO SCH (08:03)
[2020-11-07] MEDS: CHOLECALCIFEROL 1,000 UNIT TABLET PO SCH ×2 (08:04)
[2020-11-07] MEDS: allopurinoL 300 MG TABLET PO SCH (08:04)
[2020-11-07] MEDS: ZINC SULFATE 220 MG CAPSULE PO SCH (08:04)
[2020-11-07] MEDS: FLUTICASONE 50 MCG NASAL SPRAY 16 GM BOTTLE BOTH NARES SCH (08:04)
[2020-11-07] MEDS: METOPROLOL TARTRATE 25 MG TABLET PO SCH ×2 (08:04→20:28)
[2020-11-07] MEDS: ATORVASTATIN 40 MG TABLET PO SCH (08:04)
[2020-11-07] MEDS: ESCITALOPRAM 10 MG TABLET PO SCH (08:04)
[2020-11-07] MEDS: PANTOPRAZOLE 40 MG TABLET PO SCH (08:04)
[2020-11-08] MEDS: DEXAMETHASONE 4 MG/1 ML VIAL IV SCH (03:25)
[2020-11-08] MEDS: CHOLECALCIFEROL 1,000 UNIT TABLET PO SCH ×2 (10:21→10:23)
[2020-11-08] MEDS: ASPIRIN EC 81 MG TABLET PO SCH (10:23)
[2020-11-08] MEDS: ZINC SULFATE 220 MG CAPSULE PO SCH (10:23)
[2020-11-08] MEDS: OXYMETAZOLINE 0.05% NASAL SPRAY 15 ML BOTTLE BOTH NARES SCH (10:23)
[2020-11-08] MEDS: APIXABAN 5 MG TABLET PO SCH (10:23)
[2020-11-08] MEDS: DOCUSATE SODIUM 100 MG CAPSULE PO SCH ×3 (10:23→21:33)
[2020-11-08] MEDS: allopurinoL 300 MG TABLET PO SCH (10:23)
[2020-11-08] MEDS: TAMSULOSIN 0.4 MG CAPSULE PO SCH ×2 (10:24→21:32)
[2020-11-08] MEDS: METOPROLOL TARTRATE 25 MG TABLET PO SCH ×2 (10:24→21:33)
[2020-11-08] MEDS: FLUTICASONE 50 MCG NASAL SPRAY 16 GM BOTTLE BOTH NARES SCH (10:24)
[2020-11-08] MEDS: MULTIVITAMIN (CENTRUM) TABLET PO SCH (10:24)
[2020-11-08] MEDS: PANTOPRAZOLE 40 MG TABLET PO SCH (10:24)
[2020-11-08] MEDS: ATORVASTATIN 40 MG TABLET PO SCH (10:24)
[2020-11-08] MEDS: ESCITALOPRAM 10 MG TABLET PO SCH (10:24)
[2020-11-08] MEDS: APIXABAN 2.5 MG TABLET PO SCH (21:32)
[2020-11-09 05:44] LABS: Basophils # 0.1 10*3/uL (0.0-0.2); Basophils % 0.5 % (0.0-0.8); Eosinophils % 0.2 % (0.00-10.9); Hematocrit 40.4 VOL% (42.0-52.0); Hemoglobin 13.4 GM/DL (14.0-18.0); Immature Granulocytes % 4.4 %; Immature Granulocytes Absolute 0.52 #; Lymphocytes # 0.9 10*3/uL (1.4-4.0); Lymphocytes % 7.8 % (21.2-54.2); Mean Corpuscular HGB Conc 33.2 GM/DL (32-36); Mean Corpuscular Volume 95.7 FL (87-102); Mean Platelet Volume 11.1 FL (9.6-12.0); Monocytes % 4.3 % (1.7-12.7); NRBC # 0.04 10*3/uL; Neutrophils % 82.8 % (38.7-73.9); Platelet Count 157 T/CUMM (130-400); Red Blood Count 4.22 MC/CUMM (3.8-5.5); Red Cell Distribution Width 14.4 % (9.3-17.3); White Blood Count 11.9 T/CUMM (4-12)
[2020-11-09 06:11] LABS: Calcium 8.6 MG/DL (8.5-10.1); Osmolality,Calculated 307.1 MOS/KG (273-304)
[2020-11-09 08:24] LABS: Band Neutrophils 2 % (0-10); Lymphocytes 6 % (20-55); Platelet Estimate Adequate; Polychromasia Slight; Segmented Neutrophils 89 % (50-85); Total Cells Counted 100
[2020-11-09] MEDS: OXYMETAZOLINE 0.05% NASAL SPRAY 15 ML BOTTLE BOTH NARES SCH (10:25)
[2020-11-09] MEDS: MULTIVITAMIN (CENTRUM) TABLET PO SCH (10:25)
[2020-11-09] MEDS: FLUTICASONE 50 MCG NASAL SPRAY 16 GM BOTTLE BOTH NARES SCH (10:25)
[2020-11-09] MEDS: ESCITALOPRAM 10 MG TABLET PO SCH (10:25)
[2020-11-09] MEDS: DOCUSATE SODIUM 100 MG CAPSULE PO SCH ×2 (10:25→21:00)
[2020-11-09] MEDS: APIXABAN 2.5 MG TABLET PO SCH ×2 (10:25→21:00)
[2020-11-09] MEDS: TAMSULOSIN 0.4 MG CAPSULE PO SCH ×2 (10:25→21:00)
[2020-11-09] MEDS: ATORVASTATIN 40 MG TABLET PO SCH (10:25)
[2020-11-09] MEDS: ASPIRIN EC 81 MG TABLET PO SCH (10:25)
[2020-11-09] MEDS: allopurinoL 300 MG TABLET PO SCH (10:26)
[2020-11-09] MEDS: METOPROLOL TARTRATE 25 MG TABLET PO SCH ×2 (10:26→21:00)
[2020-11-09] MEDS: CHOLECALCIFEROL 1,000 UNIT TABLET PO SCH ×2 (10:26)
[2020-11-09] MEDS: ZINC SULFATE 220 MG CAPSULE PO SCH (10:26)
[2020-11-09] MEDS: PANTOPRAZOLE 40 MG TABLET PO SCH (10:26)
[2020-11-09] MEDS: predniSONE 20 MG TABLET PO SCH (10:26)
[2020-11-10] MEDS: allopurinoL 300 MG TABLET PO SCH (11:31)
[2020-11-10] MEDS: CHOLECALCIFEROL 1,000 UNIT TABLET PO SCH ×2 (11:31→12:06)
[2020-11-10] MEDS: FLUTICASONE 50 MCG NASAL SPRAY 16 GM BOTTLE BOTH NARES SCH (11:32)
[2020-11-10] MEDS: METOPROLOL TARTRATE 25 MG TABLET PO SCH ×2 (11:32→21:56)
[2020-11-10] MEDS: MULTIVITAMIN (CENTRUM) TABLET PO SCH (11:32)
[2020-11-10] MEDS: OXYMETAZOLINE 0.05% NASAL SPRAY 15 ML BOTTLE BOTH NARES SCH (11:32)
[2020-11-10] MEDS: PANTOPRAZOLE 40 MG TABLET PO SCH (11:32)
[2020-11-10] MEDS: ZINC SULFATE 220 MG CAPSULE PO SCH (11:32)
[2020-11-10] MEDS: ASPIRIN EC 81 MG TABLET PO SCH (11:32)
[2020-11-10] MEDS: DOCUSATE SODIUM 100 MG CAPSULE PO SCH ×2 (11:32→21:56)
[2020-11-10] MEDS: APIXABAN 2.5 MG TABLET PO SCH ×2 (11:32→21:56)
[2020-11-10] MEDS: predniSONE 20 MG TABLET PO SCH (11:32)
[2020-11-10] MEDS: ATORVASTATIN 40 MG TABLET PO SCH (11:33)
[2020-11-10] MEDS: TAMSULOSIN 0.4 MG CAPSULE PO SCH ×2 (11:33→21:56)
[2020-11-10] MEDS: ESCITALOPRAM 10 MG TABLET PO SCH (11:33)
[2020-11-10] MEDS: ACETAMINOPHEN 325 MG TABLET PO PRN (21:56)
[2020-11-11 05:53] LABS: Basophils % 0.1 % (0.0-0.8); Eosinophils % 0.2 % (0.00-10.9); Hematocrit 40.3 VOL% (42.0-52.0); Hemoglobin 13.5 GM/DL (14.0-18.0); Immature Granulocytes % 2.6 %; Immature Granulocytes Absolute 0.31 #; Lymphocytes # 0.7 10*3/uL (1.4-4.0); Lymphocytes % 5.5 % (21.2-54.2); Mean Corpuscular HGB Conc 33.5 GM/DL (32-36); Mean Corpuscular Volume 95.5 FL (87-102); Mean Platelet Volume 10.8 FL (9.6-12.0); Monocytes % 2.6 % (1.7-12.7); Platelet Count 167 T/CUMM (130-400); Red Blood Count 4.22 MC/CUMM (3.8-5.5); Red Cell Distribution Width 14.4 % (9.3-17.3); White Blood Count 12.1 T/CUMM (4-12)
[2020-11-11 06:20] LABS: Calcium 8.5 MG/DL (8.5-10.1); Osmolality,Calculated 307.1 MOS/KG (273-304)
[2020-11-11] MEDS: ESCITALOPRAM 10 MG TABLET PO SCH (09:41)
[2020-11-11] MEDS: ASPIRIN EC 81 MG TABLET PO SCH (09:41)
[2020-11-11] MEDS: predniSONE 20 MG TABLET PO SCH (09:41)
[2020-11-11] MEDS: METOPROLOL TARTRATE 25 MG TABLET PO SCH ×2 (09:41→20:29)
[2020-11-11] MEDS: PANTOPRAZOLE 40 MG TABLET PO SCH (09:41)
[2020-11-11] MEDS: CHOLECALCIFEROL 1,000 UNIT TABLET PO SCH ×2 (09:41→10:23)
[2020-11-11] MEDS: allopurinoL 300 MG TABLET PO SCH (09:42)
[2020-11-11] MEDS: ZINC SULFATE 220 MG CAPSULE PO SCH (09:42)
[2020-11-11] MEDS: OXYMETAZOLINE 0.05% NASAL SPRAY 15 ML BOTTLE BOTH NARES SCH (09:42)
[2020-11-11] MEDS: APIXABAN 2.5 MG TABLET PO SCH ×2 (09:42→20:29)
[2020-11-11] MEDS: TAMSULOSIN 0.4 MG CAPSULE PO SCH ×2 (09:42→20:29)
[2020-11-11] MEDS: MULTIVITAMIN (CENTRUM) TABLET PO SCH (09:42)
[2020-11-11] MEDS: FLUTICASONE 50 MCG NASAL SPRAY 16 GM BOTTLE BOTH NARES SCH (09:42)
[2020-11-11] MEDS: ATORVASTATIN 40 MG TABLET PO SCH (09:42)
[2020-11-11] MEDS: DOCUSATE SODIUM 100 MG CAPSULE PO SCH ×2 (09:42→20:29)
[2020-11-11] MEDS: ACETAMINOPHEN 325 MG TABLET PO PRN (20:29)
[2020-11-12 07:02] LABS: Bilirubin,Total 0.4 MG/DL (0.2-1.0); Calcium 8.5 MG/DL (8.5-10.1); Total Protein 6.1 G/DL (6.4-8.3)
[2020-11-12] MEDS: predniSONE 20 MG TABLET PO SCH (08:17)
[2020-11-12] MEDS: CHOLECALCIFEROL 1,000 UNIT TABLET PO SCH ×2 (08:17→08:18)
[2020-11-12] MEDS: ASPIRIN EC 81 MG TABLET PO SCH (08:17)
[2020-11-12] MEDS: PANTOPRAZOLE 40 MG TABLET PO SCH (08:17)
[2020-11-12] MEDS: DOCUSATE SODIUM 100 MG CAPSULE PO SCH ×2 (08:17→22:21)
[2020-11-12] MEDS: ESCITALOPRAM 10 MG TABLET PO SCH (08:18)
[2020-11-12] MEDS: allopurinoL 300 MG TABLET PO SCH (08:18)
[2020-11-12] MEDS: METOPROLOL TARTRATE 25 MG TABLET PO SCH ×2 (08:18→22:20)
[2020-11-12] MEDS: TAMSULOSIN 0.4 MG CAPSULE PO SCH ×2 (08:18→22:21)
[2020-11-12] MEDS: ZINC SULFATE 220 MG CAPSULE PO SCH (08:18)
[2020-11-12] MEDS: ATORVASTATIN 40 MG TABLET PO SCH (08:18)
[2020-11-12] MEDS: APIXABAN 2.5 MG TABLET PO SCH ×2 (08:18→22:19)
[2020-11-12] MEDS: OXYMETAZOLINE 0.05% NASAL SPRAY 15 ML BOTTLE BOTH NARES SCH (08:18)
[2020-11-12] MEDS: MULTIVITAMIN (CENTRUM) TABLET PO SCH (08:18)
[2020-11-12] MEDS: FLUTICASONE 50 MCG NASAL SPRAY 16 GM BOTTLE BOTH NARES SCH (08:18)
[2020-11-13 06:56] LABS: Basophils % 0.2 % (0.0-0.8); Eosinophils # 0.2 10*3/uL (0.0-0.87); Eosinophils % 1.5 % (0.00-10.9); Hematocrit 40.4 VOL% (42.0-52.0); Hemoglobin 13.8 GM/DL (14.0-18.0); Immature Granulocytes % 1.5 %; Immature Granulocytes Absolute 0.17 #; Lymphocytes # 0.9 10*3/uL (1.4-4.0); Mean Corpuscular HGB Conc 34.2 GM/DL (32-36); Mean Corpuscular Volume 95.7 FL (87-102); Mean Platelet Volume 10.9 FL (9.6-12.0); Monocytes % 3.7 % (1.7-12.7); Neutrophils % 85.1 % (38.7-73.9); Platelet Count 166 T/CUMM (130-400); Red Blood Count 4.22 MC/CUMM (3.8-5.5); Red Cell Distribution Width 14.5 % (9.3-17.3); White Blood Count 11.3 T/CUMM (4-12)
[2020-11-13 07:24] LABS: Albumin 1.9 G/DL (3.4-5.0); Bilirubin,Total 0.4 MG/DL (0.2-1.0); Calcium 8.8 MG/DL (8.5-10.1); Osmolality,Calculated 303.1 MOS/KG (273-304)
[2020-11-13] MEDS: FLUTICASONE 50 MCG NASAL SPRAY 16 GM BOTTLE BOTH NARES SCH (08:53)
[2020-11-13] MEDS: ESCITALOPRAM 10 MG TABLET PO SCH (08:53)
[2020-11-13] MEDS: OXYMETAZOLINE 0.05% NASAL SPRAY 15 ML BOTTLE BOTH NARES SCH (08:53)
[2020-11-13] MEDS: DOCUSATE SODIUM 100 MG CAPSULE PO SCH ×4 (08:53→20:20)
[2020-11-13] MEDS: MULTIVITAMIN (CENTRUM) TABLET PO SCH (08:53)
[2020-11-13] MEDS: predniSONE 20 MG TABLET PO SCH (08:54)
[2020-11-13] MEDS: APIXABAN 2.5 MG TABLET PO SCH ×2 (08:54→20:18)
[2020-11-13] MEDS: PANTOPRAZOLE 40 MG TABLET PO SCH (08:54)
[2020-11-13] MEDS: allopurinoL 300 MG TABLET PO SCH (08:54)
[2020-11-13] MEDS: ASPIRIN EC 81 MG TABLET PO SCH (08:54)
[2020-11-13] MEDS: CHOLECALCIFEROL 1,000 UNIT TABLET PO SCH ×2 (08:54→08:55)
[2020-11-13] MEDS: ATORVASTATIN 40 MG TABLET PO SCH (08:54)
[2020-11-13] MEDS: METOPROLOL TARTRATE 25 MG TABLET PO SCH ×2 (08:54→20:18)
[2020-11-13] MEDS: TAMSULOSIN 0.4 MG CAPSULE PO SCH ×2 (08:54→20:18)
[2020-11-13] MEDS: ZINC SULFATE 220 MG CAPSULE PO SCH (08:54)
[2020-11-13] MEDS: ACETAMINOPHEN 325 MG TABLET PO PRN ×2 (09:10→20:18)
[2020-11-14 05:34] LABS: Basophils % 0.2 % (0.0-0.8); Eosinophils # 0.2 10*3/uL (0.0-0.87); Eosinophils % 1.5 % (0.00-10.9); Hemoglobin 13.6 GM/DL (14.0-18.0); Immature Granulocytes % 2.1 %; Immature Granulocytes Absolute 0.21 #; Lymphocytes # 0.9 10*3/uL (1.4-4.0); Lymphocytes % 9.3 % (21.2-54.2); Mean Corpuscular HGB Conc 32.4 GM/DL (32-36); Mean Platelet Volume 10.8 FL (9.6-12.0); Monocytes % 3.8 % (1.7-12.7); Neutrophils % 83.1 % (38.7-73.9); Platelet Count 167 T/CUMM (130-400); Red Blood Count 4.33 MC/CUMM (3.8-5.5); Red Cell Distribution Width 14.4 % (9.3-17.3); White Blood Count 9.9 T/CUMM (4-12)
[2020-11-14 06:09] LABS: Albumin 2.1 G/DL (3.4-5.0); Bilirubin,Total 1.1 MG/DL (0.2-1.0); Calcium 8.9 MG/DL (8.5-10.1); Osmolality,Calculated 305.1 MOS/KG (273-304); Total Protein 6.2 G/DL (6.4-8.3)
[2020-11-14] MEDS: BENZONATATE 100 MG CAPSULE PO PRN (09:01)
[2020-11-14] MEDS: CHOLECALCIFEROL 1,000 UNIT TABLET PO SCH (09:01)
[2020-11-14] MEDS: ZINC SULFATE 220 MG CAPSULE PO SCH (09:01)
[2020-11-14] MEDS: ASPIRIN EC 81 MG TABLET PO SCH (09:01)
[2020-11-14] MEDS: DOCUSATE SODIUM 100 MG CAPSULE PO SCH ×2 (09:01→20:32)
[2020-11-14] MEDS: MULTIVITAMIN (CENTRUM) TABLET PO SCH (09:01)
[2020-11-14] MEDS: APIXABAN 2.5 MG TABLET PO SCH ×2 (09:01→20:30)
[2020-11-14] MEDS: METOPROLOL TARTRATE 25 MG TABLET PO SCH ×2 (09:02→20:30)
[2020-11-14] MEDS: allopurinoL 300 MG TABLET PO SCH (09:02)
[2020-11-14] MEDS: ATORVASTATIN 40 MG TABLET PO SCH (09:02)
[2020-11-14] MEDS: PANTOPRAZOLE 40 MG TABLET PO SCH (09:02)
[2020-11-14] MEDS: ESCITALOPRAM 10 MG TABLET PO SCH (09:02)
[2020-11-14] MEDS: predniSONE 20 MG TABLET PO SCH (09:02)
[2020-11-14] MEDS: TAMSULOSIN 0.4 MG CAPSULE PO SCH ×2 (09:02→20:30)
[2020-11-14] MEDS: OXYMETAZOLINE 0.05% NASAL SPRAY 15 ML BOTTLE BOTH NARES SCH (09:02)
[2020-11-14] MEDS: SODIUM CHLORIDE 0.65% NASAL SPRAY 45 ML BOTTLE BOTH NARES PRN (09:03)
[2020-11-14] MEDS: FLUTICASONE 50 MCG NASAL SPRAY 16 GM BOTTLE BOTH NARES SCH (09:14)
[2020-11-15] MEDS: ACETAMINOPHEN 325 MG TABLET PO PRN (02:41)
[2020-11-15 05:51] LABS: Basophils % 0.1 % (0.0-0.8); Eosinophils # 0.3 10*3/uL (0.0-0.87); Hematocrit 39.5 VOL% (42.0-52.0); Hemoglobin 13.1 GM/DL (14.0-18.0); Immature Granulocytes % 1.5 %; Immature Granulocytes Absolute 0.14 #; Lymphocytes # 0.9 10*3/uL (1.4-4.0); Lymphocytes % 9.6 % (21.2-54.2); Mean Corpuscular HGB Conc 33.2 GM/DL (32-36); Mean Corpuscular Volume 95.4 FL (87-102); Mean Platelet Volume 10.9 FL (9.6-12.0); Monocytes % 4.9 % (1.7-12.7); Neutrophils % 80.9 % (38.7-73.9); Platelet Count 164 T/CUMM (130-400); Red Blood Count 4.14 MC/CUMM (3.8-5.5); Red Cell Distribution Width 14.2 % (9.3-17.3); White Blood Count 9.3 T/CUMM (4-12)
[2020-11-15 06:21] LABS: Calcium 8.8 MG/DL (8.5-10.1); Osmolality,Calculated 302.1 MOS/KG (273-304)
[2020-11-15] MEDS: APIXABAN 2.5 MG TABLET PO SCH ×2 (09:06→20:54)
[2020-11-15] MEDS: CHOLECALCIFEROL 1,000 UNIT TABLET PO SCH (09:06)
[2020-11-15] MEDS: PANTOPRAZOLE 40 MG TABLET PO SCH (09:06)
[2020-11-15] MEDS: ATORVASTATIN 40 MG TABLET PO SCH (09:06)
[2020-11-15] MEDS: predniSONE 20 MG TABLET PO SCH (09:06)
[2020-11-15] MEDS: ESCITALOPRAM 10 MG TABLET PO SCH (09:07)
[2020-11-15] MEDS: MULTIVITAMIN (CENTRUM) TABLET PO SCH (09:07)
[2020-11-15] MEDS: ZINC SULFATE 220 MG CAPSULE PO SCH (09:07)
[2020-11-15] MEDS: METOPROLOL TARTRATE 25 MG TABLET PO SCH ×2 (09:07→20:54)
[2020-11-15] MEDS: TAMSULOSIN 0.4 MG CAPSULE PO SCH ×2 (09:07→20:54)
[2020-11-15] MEDS: allopurinoL 300 MG TABLET PO SCH (09:07)
[2020-11-15] MEDS: BENZONATATE 100 MG CAPSULE PO PRN (09:07)
[2020-11-15] MEDS: ASPIRIN EC 81 MG TABLET PO SCH (09:07)
[2020-11-15] MEDS: DOCUSATE SODIUM 100 MG CAPSULE PO SCH ×2 (09:08→20:54)
[2020-11-15] MEDS: FLUTICASONE 50 MCG NASAL SPRAY 16 GM BOTTLE BOTH NARES SCH (14:24)
[2020-11-15] MEDS: OXYMETAZOLINE 0.05% NASAL SPRAY 15 ML BOTTLE BOTH NARES SCH (14:24)
[2020-11-15] MEDS: NYSTATIN 500,000 UNIT/5 ML UDCUP SWISH/SWAL SCH (20:54)
[2020-11-16 05:47] LABS: Basophils % 0.2 % (0.0-0.8); Eosinophils # 0.2 10*3/uL (0.0-0.87); Eosinophils % 1.4 % (0.00-10.9); Hematocrit 42.5 VOL% (42.0-52.0); Immature Granulocytes % 1.8 %; Immature Granulocytes Absolute 0.19 #; Lymphocytes # 0.8 10*3/uL (1.4-4.0); Lymphocytes % 7.8 % (21.2-54.2); Mean Corpuscular HGB Conc 32.9 GM/DL (32-36); Mean Corpuscular Volume 95.3 FL (87-102); Mean Platelet Volume 10.6 FL (9.6-12.0); Monocytes % 4.7 % (1.7-12.7); Neutrophils % 84.1 % (38.7-73.9); Platelet Count 179 T/CUMM (130-400); Red Blood Count 4.46 MC/CUMM (3.8-5.5); Red Cell Distribution Width 14.1 % (9.3-17.3); White Blood Count 10.4 T/CUMM (4-12)
[2020-11-16 06:50] LABS: Calcium 8.8 MG/DL (8.5-10.1)
[2020-11-16] MEDS: ACETAMINOPHEN 325 MG TABLET PO PRN (08:48)
[2020-11-16] MEDS: SODIUM CHLORIDE 0.65% NASAL SPRAY 45 ML BOTTLE BOTH NARES PRN (11:22)
[2020-11-16] MEDS: FLUTICASONE 50 MCG NASAL SPRAY 16 GM BOTTLE BOTH NARES SCH (11:22)
[2020-11-16] MEDS: OXYMETAZOLINE 0.05% NASAL SPRAY 15 ML BOTTLE BOTH NARES SCH (11:22)
[2020-11-16] MEDS: DOCUSATE SODIUM 100 MG CAPSULE PO SCH ×2 (11:23→22:40)
[2020-11-16] MEDS: METOPROLOL TARTRATE 25 MG TABLET PO SCH ×2 (11:23→22:34)
[2020-11-16] MEDS: ESCITALOPRAM 10 MG TABLET PO SCH (11:23)
[2020-11-16] MEDS: NYSTATIN 500,000 UNIT/5 ML UDCUP SWISH/SWAL SCH ×4 (11:23→22:36)
[2020-11-16] MEDS: predniSONE 20 MG TABLET PO SCH (11:23)
[2020-11-16] MEDS: ATORVASTATIN 40 MG TABLET PO SCH (11:23)
[2020-11-16] MEDS: MULTIVITAMIN (CENTRUM) TABLET PO SCH (11:24)
[2020-11-16] MEDS: ZINC SULFATE 220 MG CAPSULE PO SCH (11:24)
[2020-11-16] MEDS: ASPIRIN EC 81 MG TABLET PO SCH (11:24)
[2020-11-16] MEDS: CHOLECALCIFEROL 1,000 UNIT TABLET PO SCH (11:24)
[2020-11-16] MEDS: APIXABAN 2.5 MG TABLET PO SCH ×2 (11:24→22:34)
[2020-11-16] MEDS: PANTOPRAZOLE 40 MG TABLET PO SCH (11:24)
[2020-11-16] MEDS: TAMSULOSIN 0.4 MG CAPSULE PO SCH ×2 (11:24→22:34)
[2020-11-16] MEDS: allopurinoL 300 MG TABLET PO SCH (11:24)
[2020-11-16 20:14] LABS: ABG Base Excess 2.7 MMOL/L (-2.5-2.5); ABG HCO3 26.5 MMOL/L (20-26); ABG Oxygen Saturation 85.7 % (95-100); ABG PCO2 35.4 MM HG (35-48); ABG PH 7.473 (7.35-7.45); ABG PO2 46.3 MM HG (80-95); ABG TCO2 22.2 MMOL/L (23-27)
[2020-11-17] MEDS: NYSTATIN 500,000 UNIT/5 ML UDCUP SWISH/SWAL SCH ×4 (09:27→20:50)
[2020-11-17] MEDS: ZINC SULFATE 220 MG CAPSULE PO SCH (09:27)
[2020-11-17] MEDS: TAMSULOSIN 0.4 MG CAPSULE PO SCH ×2 (09:27→20:49)
[2020-11-17] MEDS: predniSONE 20 MG TABLET PO SCH (09:27)
[2020-11-17] MEDS: CHOLECALCIFEROL 1,000 UNIT TABLET PO SCH (09:27)
[2020-11-17] MEDS: ESCITALOPRAM 10 MG TABLET PO SCH (09:27)
[2020-11-17] MEDS: ASPIRIN EC 81 MG TABLET PO SCH (09:27)
[2020-11-17] MEDS: ATORVASTATIN 40 MG TABLET PO SCH (09:27)
[2020-11-17] MEDS: DOCUSATE SODIUM 100 MG CAPSULE PO SCH ×2 (09:28→20:49)
[2020-11-17] MEDS: APIXABAN 2.5 MG TABLET PO SCH ×2 (09:28→20:49)
[2020-11-17] MEDS: MULTIVITAMIN (CENTRUM) TABLET PO SCH (09:28)
[2020-11-17] MEDS: allopurinoL 300 MG TABLET PO SCH (09:28)
[2020-11-17] MEDS: METOPROLOL TARTRATE 25 MG TABLET PO SCH ×2 (09:28→20:49)
[2020-11-17] MEDS: PANTOPRAZOLE 40 MG TABLET PO SCH (09:28)
[2020-11-17] MEDS: FLUTICASONE 50 MCG NASAL SPRAY 16 GM BOTTLE BOTH NARES SCH (09:29)
[2020-11-17] MEDS: OXYMETAZOLINE 0.05% NASAL SPRAY 15 ML BOTTLE BOTH NARES SCH (09:29)
[2020-11-17] MEDS: SODIUM CHLORIDE 0.65% NASAL SPRAY 45 ML BOTTLE BOTH NARES PRN (09:29)
[2020-11-17] MEDS: ACETAMINOPHEN 325 MG TABLET PO PRN (20:49)
[2020-11-18] MEDS: APIXABAN 2.5 MG TABLET PO SCH ×2 (10:05→20:31)
[2020-11-18] MEDS: PANTOPRAZOLE 40 MG TABLET PO SCH (10:05)
[2020-11-18] MEDS: ASPIRIN EC 81 MG TABLET PO SCH (10:05)
[2020-11-18] MEDS: ESCITALOPRAM 10 MG TABLET PO SCH (10:05)
[2020-11-18] MEDS: ATORVASTATIN 40 MG TABLET PO SCH (10:06)
[2020-11-18] MEDS: MULTIVITAMIN (CENTRUM) TABLET PO SCH (10:06)
[2020-11-18] MEDS: TAMSULOSIN 0.4 MG CAPSULE PO SCH ×2 (10:06→20:31)
[2020-11-18] MEDS: METOPROLOL TARTRATE 25 MG TABLET PO SCH ×2 (10:06→20:30)
[2020-11-18] MEDS: NYSTATIN 500,000 UNIT/5 ML UDCUP SWISH/SWAL SCH ×4 (10:06→20:31)
[2020-11-18] MEDS: predniSONE 20 MG TABLET PO SCH (10:06)
[2020-11-18] MEDS: ZINC SULFATE 220 MG CAPSULE PO SCH (10:06)
[2020-11-18] MEDS: CHOLECALCIFEROL 1,000 UNIT TABLET PO SCH (10:06)
[2020-11-18] MEDS: SODIUM CHLORIDE 0.65% NASAL SPRAY 45 ML BOTTLE BOTH NARES PRN (10:07)
[2020-11-18] MEDS: OXYMETAZOLINE 0.05% NASAL SPRAY 15 ML BOTTLE BOTH NARES SCH (10:07)
[2020-11-18] MEDS: FLUTICASONE 50 MCG NASAL SPRAY 16 GM BOTTLE BOTH NARES SCH (10:07)
[2020-11-18] MEDS: DOCUSATE SODIUM 100 MG CAPSULE PO SCH ×2 (10:13→20:31)
[2020-11-18] MEDS: allopurinoL 300 MG TABLET PO SCH (10:13)
[2020-11-18] MEDS ORDERED: predniSONE 20 MG TABLET PO SCH (16:26)
[2020-11-18] MEDS ORDERED: PHENOL 1.4% THROAT SPRAY 177 ML BOTTLE PO PRN (20:10)
[2020-11-18] MEDS: ALPRAZolam 0.25 MG TABLET PO PRN (20:30)
[2020-11-19 04:27] LABS: Basophils % 0.2 % (0.0-0.8); Eosinophils # 0.1 10*3/uL (0.0-0.87); Eosinophils % 0.8 % (0.00-10.9); Hematocrit 38.3 VOL% (42.0-52.0); Hemoglobin 12.9 GM/DL (14.0-18.0); Immature Granulocytes % 2.8 %; Immature Granulocytes Absolute 0.24 #; Lymphocytes # 0.8 10*3/uL (1.4-4.0); Lymphocytes % 9.5 % (21.2-54.2); Mean Corpuscular HGB Conc 33.7 GM/DL (32-36); Mean Corpuscular Volume 94.1 FL (87-102); Mean Platelet Volume 10.6 FL (9.6-12.0); Monocytes % 4.3 % (1.7-12.7); Neutrophils % 82.4 % (38.7-73.9); Platelet Count 172 T/CUMM (130-400); Red Blood Count 4.07 MC/CUMM (3.8-5.5); Red Cell Distribution Width 13.8 % (9.3-17.3); White Blood Count 8.4 T/CUMM (4-12)
[2020-11-19] MEDS: ASPIRIN EC 81 MG TABLET PO SCH (08:28)
[2020-11-19] MEDS: NYSTATIN 500,000 UNIT/5 ML UDCUP SWISH/SWAL SCH ×4 (08:28→20:06)
[2020-11-19] MEDS: DOCUSATE SODIUM 100 MG CAPSULE PO SCH ×2 (08:28→20:07)
[2020-11-19] MEDS: ATORVASTATIN 40 MG TABLET PO SCH (08:29)
[2020-11-19] MEDS: CHOLECALCIFEROL 1,000 UNIT TABLET PO SCH (08:29)
[2020-11-19] MEDS: MULTIVITAMIN (CENTRUM) TABLET PO SCH (08:29)
[2020-11-19] MEDS: ESCITALOPRAM 10 MG TABLET PO SCH (08:29)
[2020-11-19] MEDS: PANTOPRAZOLE 40 MG TABLET PO SCH (08:30)
[2020-11-19] MEDS: METOPROLOL TARTRATE 25 MG TABLET PO SCH ×2 (08:30→20:07)
[2020-11-19] MEDS: ZINC SULFATE 220 MG CAPSULE PO SCH (08:30)
[2020-11-19] MEDS: allopurinoL 300 MG TABLET PO SCH (08:30)
[2020-11-19] MEDS: TAMSULOSIN 0.4 MG CAPSULE PO SCH ×2 (08:30→20:07)
[2020-11-19] MEDS: APIXABAN 2.5 MG TABLET PO SCH (08:31)
[2020-11-19] MEDS: ALPRAZolam 0.25 MG TABLET PO PRN ×2 (09:06→20:07)
[2020-11-19] MEDS: OXYMETAZOLINE 0.05% NASAL SPRAY 15 ML BOTTLE BOTH NARES SCH (09:30)
[2020-11-19] MEDS: SODIUM CHLORIDE 0.65% NASAL SPRAY 45 ML BOTTLE BOTH NARES PRN (09:30)
[2020-11-19 11:05] LABS: Calcium 8.7 MG/DL (8.5-10.1); Osmolality,Calculated 303.4 MOS/KG (273-304)
[2020-11-19] MEDS: BACITRACIN OINT 0.9 GM PACK TOP SCH ×3 (13:13→20:09)
[2020-11-19] MEDS: FLUTICASONE 50 MCG NASAL SPRAY 16 GM BOTTLE BOTH NARES SCH (13:25)
[2020-11-20] MEDS: ALPRAZolam 0.25 MG TABLET PO PRN (08:25)
[2020-11-20] MEDS ORDERED: LORazepam 2 MG/1 ML VIAL IV ONE (08:35)
[2020-11-20] MEDS ORDERED: LORazepam 2 MG/1 ML VIAL ONE (08:38)
[2020-11-20] MEDS ORDERED: METOPROLOL TARTRATE 5 MG/5 ML VIAL IV ONE ×2 (08:55)
[2020-11-20] MEDS ORDERED: predniSONE 20 MG TABLET PO SCH (09:00)
[2020-11-20] MEDS: BENZONATATE 100 MG CAPSULE PO PRN (09:09)
[2020-11-20] MEDS ORDERED: ETOMIDATE 20 MG/10 ML VIAL IV ONE ×2 (10:05)
[2020-11-20] MEDS ORDERED: SUCCINYLCHOLINE 200 MG/10 ML VIAL ONE (10:05)
[2020-11-20] MEDS ORDERED: SUCCINYLCHOLINE 200 MG/10 ML VIAL IV ONE (10:05)
[2020-11-20] MEDS ORDERED: PHENYLEPHRINE DRIP 40 MG/250 ML PREMIX IV ONE (10:41)
[2020-11-20] MEDS: MIDAZOLAM 100 MG in SODIUM CHLORIDE 0.9% 80 ML IV PRN (10:47)
[2020-11-20] MEDS ORDERED: MIDAZOLAM 2 MG/2 ML VIAL ONE (10:49)
[2020-11-20] MEDS ORDERED: MIDAZOLAM 2 MG/2 ML VIAL IV ONE ×2 (10:50→11:00)
[2020-11-20] MEDS: PHENYLEPHRINE DRIP 40 MG/250 ML PREMIX IV PRN ×2 (10:50→14:30)
[2020-11-20] MEDS ORDERED: SODIUM CHLORIDE 0.9% 500 ML IV ONE ×2 (11:00→12:00)
[2020-11-20] MEDS ORDERED: MORPHINE 4 MG/1 ML VIAL IV ONE (11:25)
[2020-11-20 11:28] LABS: ABG Base Excess 2.4 MMOL/L (-2.5-2.5); ABG HCO3 26.2 MMOL/L (20-26); ABG Oxygen Saturation 82.5 % (95-100); ABG PCO2 51.2 MM HG (35-48); ABG PO2 51.2 MM HG (80-95); ABG TCO2 25.5 MMOL/L (23-27); Allen Test Positive; Pt O2 Delivery Device Ventilator
[2020-11-20] MEDS ORDERED: CISATRACURIUM 10 MG/5 ML VIAL IV ONE (11:49)
[2020-11-20] MEDS ORDERED: CISATRACURIUM 200 MG in SODIUM CHLORIDE 0.9% 180 ML IV PRN (11:49)
[2020-11-20] MEDS: PANTOPRAZOLE 40 MG TABLET PO SCH (11:57)
[2020-11-20] MEDS ORDERED: VANCOMYCIN INJ 1,250 MG in SODIUM CHLORIDE 0.9% 250 ML IV PRN (12:13)
[2020-11-20] MEDS: fentaNYL INJ 1,250 MCG in SODIUM CHLORIDE 0.9% 225 ML IV PRN ×2 (12:30→23:37)
[2020-11-20] MEDS: BACITRACIN OINT 0.9 GM PACK TOP SCH ×3 (12:37→20:16)
[2020-11-20] MEDS: OXYMETAZOLINE 0.05% NASAL SPRAY 15 ML BOTTLE BOTH NARES SCH (12:37)
[2020-11-20] MEDS: DOCUSATE SODIUM 100 MG CAPSULE PO SCH ×2 (12:38→20:14)
[2020-11-20] MEDS: TAMSULOSIN 0.4 MG CAPSULE PO SCH ×2 (12:39→20:14)
[2020-11-20] MEDS: ESCITALOPRAM 10 MG TABLET PO SCH (12:39)
[2020-11-20] MEDS: MULTIVITAMIN (CENTRUM) TABLET PO SCH (12:39)
[2020-11-20] MEDS: NYSTATIN 500,000 UNIT/5 ML UDCUP SWISH/SWAL SCH ×4 (12:40→20:15)
[2020-11-20] MEDS: ATORVASTATIN 40 MG TABLET PO SCH (12:40)
[2020-11-20] MEDS ORDERED: VANCOMYCIN INJ 1,250 MG in SODIUM CHLORIDE 0.9% 250 ML IV ONE (13:00)
[2020-11-20] MEDS: SODIUM CHLORIDE 0.9% 1,000 ML IV SCH ×2 (13:00→18:33)
[2020-11-20] MEDS: MICAFUNGIN 100 MG in SODIUM CHLORIDE 0.9% 100 ML IV SCH (13:29)
[2020-11-20 13:44] LABS: Bacteria,Urine Occasional /HPF (Few); Bilirubin,Urine Negative (Negative); Blood, Urine Negative (Negative); Glucose,Urine (UA) Negative (Negative); Ketones,Urine Negative (Negative); Mucus,Urine Occasional /LPF (Occasional); Nitrite,Urine Negative (Negative); Protein,Urine 100 MG/DL; RBC,Urine 1 /HPF (0-4); Squamous Epithelial Cell,Urine Occasional /HPF (0-10); Urine Appearance CLEAR (Clear); Urine Color Yellow (Yellow); Urine Specific Gravity 1.013 (1.001-1.035); Urine Urobilinogen < 2.0 EU/DL (0.2-1.0); WBC,Urine 1 /HPF (0-6)
[2020-11-20] MEDS: MEROPENEM 500 MG in SODIUM CHLORIDE 0.9% 100 ML IV SCH (14:03)
[2020-11-20 14:08] LABS: ABG Base Excess -0.7 MMOL/L (-2.5-2.5); ABG HCO3 23.9 MMOL/L (20-26); ABG Oxygen Saturation 99.5 % (95-100); ABG PCO2 67.2 MM HG (35-48); ABG PH 7.241 (7.35-7.45); ABG TCO2 25.8 MMOL/L (23-27)
[2020-11-20] MEDS: METOPROLOL TARTRATE 25 MG TABLET PO SCH ×2 (15:11→20:14)
[2020-11-20] MEDS ORDERED: DEXTROSE 50% 25 GM/50 ML VIAL IV PRN (15:22)
[2020-11-20] MEDS ORDERED: GLUCAGON 1 MG VIAL IM PRN (15:22)
[2020-11-20] MEDS: ALBUTEROL 2.5 MG/3 ML NEB RESP TX SCH ×2 (15:41→20:08)
[2020-11-20] MEDS: CHOLECALCIFEROL 1,000 UNIT TABLET PO SCH (16:56)
[2020-11-20] MEDS: ZINC SULFATE 220 MG CAPSULE PO SCH (16:56)
[2020-11-20] MEDS: allopurinoL 300 MG TABLET PO SCH (16:57)
[2020-11-20] MEDS: INSULIN REGULAR 100 UNIT/ML SUBCUT SCH ×2 (17:48→23:57)
[2020-11-21] MEDS: ALBUTEROL 2.5 MG/3 ML NEB RESP TX SCH ×7 (00:23→23:04)
[2020-11-21] MEDS: MEROPENEM 500 MG in SODIUM CHLORIDE 0.9% 100 ML IV SCH ×2 (00:32→12:28)
[2020-11-21 04:28] LABS: ABG Base Excess -0.4 MMOL/L (-2.5-2.5); ABG HCO3 24.1 MMOL/L (20-26); ABG Oxygen Saturation 97.8 % (95-100); ABG PCO2 52.3 MM HG (35-48); ABG PH 7.316 (7.35-7.45); ABG PO2 98.4 MM HG (80-95); ABG TCO2 23.7 MMOL/L (23-27); Allen Test Positive; Pt O2 Delivery Device Ventilator
[2020-11-21] MEDS: SODIUM CHLORIDE 0.9% 1,000 ML IV SCH ×2 (04:42→14:30)
[2020-11-21 05:01] LABS: Basophils % 0.2 % (0.0-0.8); Eosinophils % 0.1 % (0.00-10.9); Hemoglobin 11.9 GM/DL (14.0-18.0); Immature Granulocytes % 1.2 %; Immature Granulocytes Absolute 0.11 #; Lymphocytes # 0.4 10*3/uL (1.4-4.0); Mean Corpuscular HGB Conc 32.2 GM/DL (32-36); Mean Corpuscular Volume 98.1 FL (87-102); Mean Platelet Volume 10.8 FL (9.6-12.0); Monocytes % 3.2 % (1.7-12.7); Neutrophils % 91.3 % (38.7-73.9); Platelet Count 157 T/CUMM (130-400); Red Blood Count 3.77 MC/CUMM (3.8-5.5); Red Cell Distribution Width 14.1 % (9.3-17.3)
[2020-11-21 05:25] LABS: Hypochromasia 1+; Lymphocytes 5 % (20-55); Microcytosis Slight; Ovalocytes Slight; Platelet Estimate Adequate; Segmented Neutrophils 92 % (50-85); Total Cells Counted 100
[2020-11-21 05:29] LABS: Albumin 1.9 G/DL (3.4-5.0); Bilirubin,Total 0.6 MG/DL (0.2-1.0); Calcium 7.7 MG/DL (8.5-10.1); Osmolality,Calculated 299.1 MOS/KG (273-304); Total Protein 4.9 G/DL (6.4-8.3)
[2020-11-21] MEDS: INSULIN REGULAR 100 UNIT/ML SUBCUT SCH ×3 (06:22→18:58)
[2020-11-21] MEDS: TAMSULOSIN 0.4 MG CAPSULE PO SCH ×2 (08:20→20:41)
[2020-11-21] MEDS: POLYETHYLENE GLYCOL POWDER 17 GM PACK PO SCH (08:53)
[2020-11-21] MEDS: ESCITALOPRAM 10 MG TABLET PO SCH (08:53)
[2020-11-21] MEDS: BACITRACIN OINT 0.9 GM PACK TOP SCH ×3 (08:54→21:00)
[2020-11-21] MEDS: DOCUSATE SODIUM 100 MG CAPSULE PO SCH ×2 (08:54→21:00)
[2020-11-21] MEDS: MULTIVITAMIN (CENTRUM) TABLET PO SCH (08:54)
[2020-11-21] MEDS: ZINC SULFATE 220 MG CAPSULE PO SCH (08:54)
[2020-11-21] MEDS: allopurinoL 300 MG TABLET PO SCH (08:55)
[2020-11-21] MEDS: ATORVASTATIN 40 MG TABLET PO SCH (08:55)
[2020-11-21] MEDS: NYSTATIN 500,000 UNIT/5 ML UDCUP SWISH/SWAL SCH (08:55)
[2020-11-21] MEDS: CHOLECALCIFEROL 1,000 UNIT TABLET PO SCH (08:55)
[2020-11-21] MEDS: SODIUM CHLORIDE 0.65% NASAL SPRAY 45 ML BOTTLE BOTH NARES PRN (08:56)
[2020-11-21] MEDS: OXYMETAZOLINE 0.05% NASAL SPRAY 15 ML BOTTLE BOTH NARES SCH (08:56)
[2020-11-21] MEDS: methylPREDNISolone SOD SUC 40 MG/1 ML VIAL IV SCH ×2 (09:11→16:38)
[2020-11-21] MEDS: PANTOPRAZOLE 40 MG VIAL IV SCH (09:11)
[2020-11-21] MEDS: METOPROLOL TARTRATE 25 MG TABLET PO SCH ×2 (09:11→20:41)
[2020-11-21 11:47] LABS: Calcium 8.2 MG/DL (8.5-10.1); Osmolality,Calculated 302.8 MOS/KG (273-304)
[2020-11-21] MEDS: ENOXAPARIN 30 MG/0.3 ML SYRINGE SUBCUT SCH (12:28)
[2020-11-21] MEDS ORDERED: SODIUM CHLORIDE IV PRN (13:00)
[2020-11-21] MEDS ORDERED: PHENYLEPHRINE IV PRN (13:00)
[2020-11-21] MEDS: MICAFUNGIN 100 MG in SODIUM CHLORIDE 0.9% 100 ML IV SCH (13:51)
[2020-11-21] MEDS: METOCLOPRAMIDE 10 MG/2 ML VIAL IV SCH (18:59)
[2020-11-21] MEDS: fentaNYL INJ 1,250 MCG in SODIUM CHLORIDE 0.9% 225 ML IV PRN (19:17)
[2020-11-22] MEDS: INSULIN REGULAR 100 UNIT/ML SUBCUT SCH ×4 (00:14→18:13)
[2020-11-22] MEDS: MEROPENEM 500 MG in SODIUM CHLORIDE 0.9% 100 ML IV SCH ×2 (00:28→12:45)
[2020-11-22] MEDS: SODIUM CHLORIDE 0.9% 1,000 ML IV SCH (00:28)
[2020-11-22] MEDS: METOCLOPRAMIDE 10 MG/2 ML VIAL IV SCH ×4 (00:28→18:13)
[2020-11-22] MEDS: PHENYLEPHRINE DRIP 40 MG/250 ML PREMIX IV PRN (01:30)
[2020-11-22] MEDS: methylPREDNISolone SOD SUC 40 MG/1 ML VIAL IV SCH ×3 (01:33→18:13)
[2020-11-22 03:28] LABS: ABG Base Excess -3.7 MMOL/L (-2.5-2.5); ABG HCO3 21.3 MMOL/L (20-26); ABG Oxygen Saturation 96.9 % (95-100); ABG PCO2 53.8 MM HG (35-48); ABG PH 7.259 (7.35-7.45); ABG PO2 94.7 MM HG (80-95); Allen Test Positive; Pt O2 Delivery Device Ventilator
[2020-11-22] MEDS: fentaNYL INJ 1,250 MCG in SODIUM CHLORIDE 0.9% 225 ML IV PRN ×3 (04:58→23:08)
[2020-11-22 05:15] LABS: Calcium 8.2 MG/DL (8.5-10.1); Osmolality,Calculated 309.4 MOS/KG (273-304)
[2020-11-22] MEDS: ALBUTEROL 2.5 MG/3 ML NEB RESP TX SCH ×4 (07:23→23:30)
[2020-11-22] MEDS ORDERED: SODIUM CHLORIDE 0.9% 500 ML IV ONE (07:51)
[2020-11-22] MEDS: ESCITALOPRAM 10 MG TABLET PO SCH (08:07)
[2020-11-22] MEDS: ATORVASTATIN 40 MG TABLET PO SCH (08:07)
[2020-11-22] MEDS: allopurinoL 300 MG TABLET PO SCH (08:07)
[2020-11-22] MEDS: ASPIRIN CHEW 81 MG TABLET PO SCH (08:07)
[2020-11-22] MEDS: CHOLECALCIFEROL 1,000 UNIT TABLET PO SCH (08:07)
[2020-11-22] MEDS: BACITRACIN OINT 0.9 GM PACK TOP SCH ×3 (08:08→20:59)
[2020-11-22] MEDS: METOPROLOL TARTRATE 25 MG TABLET PO SCH ×2 (08:08→20:58)
[2020-11-22] MEDS: ZINC SULFATE 220 MG CAPSULE PO SCH (08:08)
[2020-11-22] MEDS: PANTOPRAZOLE 40 MG VIAL IV SCH (08:09)
[2020-11-22] MEDS: TAMSULOSIN 0.4 MG CAPSULE PO SCH ×2 (08:11→20:35)
[2020-11-22] MEDS: MULTIVITAMIN LIQUID (CENTRUM) 60 ML BOTTLE NG SCH (08:12)
[2020-11-22] MEDS: OXYMETAZOLINE 0.05% NASAL SPRAY 15 ML BOTTLE BOTH NARES SCH (08:12)
[2020-11-22] MEDS: POLYETHYLENE GLYCOL POWDER 17 GM PACK PO SCH (08:12)
[2020-11-22] MEDS: DOCUSATE SODIUM 100 MG CAPSULE PO SCH ×2 (08:13→20:58)
[2020-11-22] MEDS ORDERED: VANCOMYCIN INJ 1,250 MG in SODIUM CHLORIDE 0.9% 250 ML IV ONE ×2 (09:00→12:00)
[2020-11-22] MEDS: MIDAZOLAM 100 MG in SODIUM CHLORIDE 0.9% 80 ML IV PRN (10:12)
[2020-11-22] MEDS: ENOXAPARIN 30 MG/0.3 ML SYRINGE SUBCUT SCH (10:41)
[2020-11-22] MEDS: MICAFUNGIN 100 MG in SODIUM CHLORIDE 0.9% 100 ML IV SCH (13:00)
[2020-11-22] MEDS: LACTULOSE 20 GM/30 ML UDCUP PO PRN (20:58)
[2020-11-23] MEDS: INSULIN REGULAR 100 UNIT/ML SUBCUT SCH ×4 (00:21→18:12)
[2020-11-23] MEDS: MEROPENEM 500 MG in SODIUM CHLORIDE 0.9% 100 ML IV SCH ×2 (00:33→12:15)
[2020-11-23] MEDS: METOCLOPRAMIDE 10 MG/2 ML VIAL IV SCH ×4 (00:33→18:12)
[2020-11-23] MEDS: methylPREDNISolone SOD SUC 40 MG/1 ML VIAL IV SCH ×3 (00:33→16:56)
[2020-11-23 03:40] LABS: Allen Test Positive; Pt O2 Delivery Device Ventilator
[2020-11-23 03:41] LABS: ABG HCO3 23.1 MMOL/L (20-26); ABG Oxygen Saturation 95.4 % (95-100); ABG PCO2 57.2 MM HG (35-48); ABG PH 7.225 (7.35-7.45); ABG PO2 85.3 MM HG (80-95); ABG TCO2 24.9 MMOL/L (23-27)
[2020-11-23 03:58] LABS: Basophils % 0.2 % (0.0-0.8); Hematocrit 35.9 VOL% (42.0-52.0); Hemoglobin 11.2 GM/DL (14.0-18.0); Immature Granulocytes % 2.4 %; Lymphocytes # 0.3 10*3/uL (1.4-4.0); Lymphocytes % 2.3 % (21.2-54.2); Mean Corpuscular HGB Conc 31.2 GM/DL (32-36); Mean Corpuscular Volume 101.1 FL (87-102); Monocytes % 1.5 % (1.7-12.7); NRBC # 0.02 10*3/uL; Neutrophils % 93.6 % (38.7-73.9); Platelet Count 164 T/CUMM (130-400); Red Blood Count 3.55 MC/CUMM (3.8-5.5); Red Cell Distribution Width 14.7 % (9.3-17.3); White Blood Count 12.3 T/CUMM (4-12)
[2020-11-23 04:14] LABS: Calcium 8.3 MG/DL (8.5-10.1); Osmolality,Calculated 314.1 MOS/KG (273-304)
[2020-11-23] MEDS: ALBUTEROL 2.5 MG/3 ML NEB RESP TX SCH ×6 (04:45→23:11)
[2020-11-23] MEDS: fentaNYL INJ 1,250 MCG in SODIUM CHLORIDE 0.9% 225 ML IV PRN ×3 (05:34→22:12)
[2020-11-23 06:41] LABS: Fungitell Quantitative Value < 31 pg/mL (<60 pg/mL)
[2020-11-23] MEDS: METOPROLOL TARTRATE 25 MG TABLET PO SCH ×2 (09:33→22:13)
[2020-11-23] MEDS: CHOLECALCIFEROL 1,000 UNIT TABLET PO SCH (09:33)
[2020-11-23] MEDS: allopurinoL 300 MG TABLET PO SCH (09:34)
[2020-11-23] MEDS: ATORVASTATIN 40 MG TABLET PO SCH (09:34)
[2020-11-23] MEDS: ESCITALOPRAM 10 MG TABLET PO SCH (09:34)
[2020-11-23] MEDS: ASPIRIN CHEW 81 MG TABLET PO SCH (09:34)
[2020-11-23] MEDS: ZINC SULFATE 220 MG CAPSULE PO SCH (09:35)
[2020-11-23] MEDS: MULTIVITAMIN LIQUID (CENTRUM) 60 ML BOTTLE NG SCH (09:36)
[2020-11-23] MEDS: POLYETHYLENE GLYCOL POWDER 17 GM PACK PO SCH (09:37)
[2020-11-23] MEDS: PANTOPRAZOLE 40 MG VIAL IV SCH (09:38)
[2020-11-23] MEDS: DOCUSATE SODIUM 100 MG/10 ML UDCUP PO SCH ×2 (09:43→22:13)
[2020-11-23] MEDS: TAMSULOSIN 0.4 MG CAPSULE PO SCH ×2 (10:07→22:13)
[2020-11-23] MEDS: BACITRACIN OINT 0.9 GM PACK TOP SCH ×3 (10:07→22:14)
[2020-11-23] MEDS: OXYMETAZOLINE 0.05% NASAL SPRAY 15 ML BOTTLE BOTH NARES SCH (11:26)
[2020-11-23] MEDS: ENOXAPARIN 30 MG/0.3 ML SYRINGE SUBCUT SCH (11:48)
[2020-11-23 12:09] LABS: ABG Base Excess -4.8 MMOL/L (-2.5-2.5); ABG HCO3 20.4 MMOL/L (20-26); ABG Oxygen Saturation 96.3 % (95-100); ABG PCO2 56.9 MM HG (35-48); ABG PH 7.235 (7.35-7.45); ABG PO2 89.1 MM HG (80-95); ABG TCO2 21.1 MMOL/L (23-27)
[2020-11-23] MEDS: SODIUM BICARB INJ 150 MEQ in STERILE WATER INJ 850 ML IV SCH (12:12)
[2020-11-23] MEDS ORDERED: VANCOMYCIN INJ 1,250 MG in SODIUM CHLORIDE 0.9% 250 ML IV ONE (14:00)
[2020-11-23] MEDS: MICAFUNGIN 100 MG in SODIUM CHLORIDE 0.9% 100 ML IV SCH (15:00)
[2020-11-23] MEDS: DOCUSATE SODIUM 100 MG CAPSULE PO SCH (19:35)
[2020-11-24] MEDS: ALPRAZolam 0.25 MG TABLET PO PRN ×2 (00:15→09:46)
[2020-11-24] MEDS: INSULIN REGULAR 100 UNIT/ML SUBCUT SCH ×4 (00:24→17:48)
[2020-11-24] MEDS: methylPREDNISolone SOD SUC 40 MG/1 ML VIAL IV SCH ×3 (00:32→15:48)
[2020-11-24] MEDS: MEROPENEM 500 MG in SODIUM CHLORIDE 0.9% 100 ML IV SCH ×2 (00:34→11:48)
[2020-11-24] MEDS: METOCLOPRAMIDE 10 MG/2 ML VIAL IV SCH ×4 (00:34→17:48)
[2020-11-24] MEDS: ALBUTEROL 2.5 MG/3 ML NEB RESP TX SCH ×6 (02:25→23:31)
[2020-11-24 04:13] LABS: Basophils % 0.1 % (0.0-0.8); Hematocrit 33.6 VOL% (42.0-52.0); Hemoglobin 10.5 GM/DL (14.0-18.0); Immature Granulocytes % 2.7 %; Immature Granulocytes Absolute 0.31 #; Lymphocytes # 0.3 10*3/uL (1.4-4.0); Lymphocytes % 2.5 % (21.2-54.2); Mean Corpuscular HGB Conc 31.3 GM/DL (32-36); Mean Corpuscular Volume 100.6 FL (87-102); Mean Platelet Volume 10.4 FL (9.6-12.0); Monocytes % 2.8 % (1.7-12.7); Neutrophils % 91.9 % (38.7-73.9); Platelet Count 154 T/CUMM (130-400); Red Blood Count 3.34 MC/CUMM (3.8-5.5); Red Cell Distribution Width 14.6 % (9.3-17.3); White Blood Count 11.4 T/CUMM (4-12)
[2020-11-24 04:21] LABS: Calcium 8.1 MG/DL (8.5-10.1); Osmolality,Calculated 313.6 MOS/KG (273-304)
[2020-11-24] MEDS: fentaNYL INJ 1,250 MCG in SODIUM CHLORIDE 0.9% 225 ML IV PRN ×3 (04:37→21:58)
[2020-11-24 04:40] LABS: ABG Base Excess -0.2 MMOL/L (-2.5-2.5); ABG HCO3 26.7 MMOL/L (20-26); ABG Oxygen Saturation 96.3 % (95-100); ABG PCO2 54.4 MM HG (35-48); ABG PH 7.309 (7.35-7.45); ABG PO2 92.3 MM HG (80-95); ABG TCO2 28.4 MMOL/L (23-27); Allen Test Positive; Pt O2 Delivery Device Ventilator
[2020-11-24 07:30] LABS: Lymphocytes 5 % (20-55); Metamyelocytes 1 %; Platelet Estimate Adequate; Segmented Neutrophils 90 % (50-85); Total Cells Counted 100
[2020-11-24 07:31] LABS: Hypochromasia 1+
[2020-11-24] MEDS: SODIUM BICARB INJ 150 MEQ in STERILE WATER INJ 850 ML IV SCH (08:05)
[2020-11-24] MEDS: OXYMETAZOLINE 0.05% NASAL SPRAY 15 ML BOTTLE BOTH NARES SCH (09:03)
[2020-11-24] MEDS: BACITRACIN OINT 0.9 GM PACK TOP SCH ×3 (09:03→21:57)
[2020-11-24] MEDS: ASPIRIN CHEW 81 MG TABLET PO SCH (09:44)
[2020-11-24] MEDS: POLYETHYLENE GLYCOL POWDER 17 GM PACK PO SCH (09:44)
[2020-11-24] MEDS: METOPROLOL TARTRATE 25 MG TABLET PO SCH ×2 (09:44→21:58)
[2020-11-24] MEDS: DOCUSATE SODIUM 100 MG/10 ML UDCUP PO SCH ×2 (09:46→21:58)
[2020-11-24] MEDS: TAMSULOSIN 0.4 MG CAPSULE PO SCH ×2 (09:46→21:58)
[2020-11-24] MEDS: PANTOPRAZOLE 40 MG VIAL IV SCH (09:46)
[2020-11-24] MEDS: ESCITALOPRAM 10 MG TABLET PO SCH (09:46)
[2020-11-24] MEDS: allopurinoL 300 MG TABLET PO SCH (09:47)
[2020-11-24] MEDS: ATORVASTATIN 40 MG TABLET PO SCH (09:47)
[2020-11-24] MEDS: ZINC SULFATE 220 MG CAPSULE PO SCH (09:47)
[2020-11-24] MEDS: CHOLECALCIFEROL 1,000 UNIT TABLET PO SCH (09:47)
[2020-11-24] MEDS: MULTIVITAMIN LIQUID (CENTRUM) 60 ML BOTTLE NG SCH (09:48)
[2020-11-24] MEDS ORDERED: SODIUM CHLORIDE 0.9% 1,000 ML IV ONE (10:36)
[2020-11-24] MEDS ORDERED: POTASSIUM CHLORIDE RIDER 10 MEQ in PREMIX 1 EACH IV PRN (10:37)
[2020-11-24] MEDS: ENOXAPARIN 30 MG/0.3 ML SYRINGE SUBCUT SCH (10:42)
[2020-11-24] MEDS: MICAFUNGIN 100 MG in SODIUM CHLORIDE 0.9% 100 ML IV SCH (13:06)
[2020-11-24] MEDS ORDERED: VANCOMYCIN INJ 1,250 MG in SODIUM CHLORIDE 0.9% 250 ML IV ONE (14:30)
[2020-11-25] MEDS: INSULIN REGULAR 100 UNIT/ML SUBCUT SCH ×4 (01:12→18:14)
[2020-11-25] MEDS: methylPREDNISolone SOD SUC 40 MG/1 ML VIAL IV SCH ×3 (01:13→15:43)
[2020-11-25] MEDS: METOCLOPRAMIDE 10 MG/2 ML VIAL IV SCH ×4 (01:13→17:35)
[2020-11-25] MEDS: MEROPENEM 500 MG in SODIUM CHLORIDE 0.9% 100 ML IV SCH ×2 (01:33→12:25)
[2020-11-25] MEDS: ALBUTEROL 2.5 MG/3 ML NEB RESP TX SCH ×6 (03:04→23:55)
[2020-11-25 04:33] LABS: Basophils % 0.2 % (0.0-0.8); Hematocrit 29.9 VOL% (42.0-52.0); Hemoglobin 9.5 GM/DL (14.0-18.0); Immature Granulocytes % 4.6 %; Immature Granulocytes Absolute 0.44 #; Lymphocytes # 0.3 10*3/uL (1.4-4.0); Mean Corpuscular HGB Conc 31.8 GM/DL (32-36); Mean Corpuscular Volume 99.7 FL (87-102); Monocytes % 3.9 % (1.7-12.7); NRBC # 0.04 10*3/uL; Neutrophils % 88.3 % (38.7-73.9); Platelet Count 128 T/CUMM (130-400); Red Cell Distribution Width 14.6 % (9.3-17.3); White Blood Count 9.6 T/CUMM (4-12)
[2020-11-25 04:41] LABS: Allen Test Positive; Pt O2 Delivery Device Ventilator
[2020-11-25 04:42] LABS: ABG Base Excess 7.2 MMOL/L (-2.5-2.5); ABG Oxygen Saturation 98.2 % (95-100); ABG PCO2 58.8 MM HG (35-48); ABG PH 7.371 (7.35-7.45); ABG TCO2 31.2 MMOL/L (23-27)
[2020-11-25] MEDS: SODIUM BICARB INJ 150 MEQ in STERILE WATER INJ 850 ML IV SCH (04:43)
[2020-11-25 04:56] LABS: Calcium 7.9 MG/DL (8.5-10.1); Osmolality,Calculated 313.4 MOS/KG (273-304)
[2020-11-25] MEDS: fentaNYL INJ 1,250 MCG in SODIUM CHLORIDE 0.9% 225 ML IV PRN ×3 (06:45→23:28)
[2020-11-25 07:27] LABS: Lymphocytes 2 % (20-55); Metamyelocytes 2 %; Nucleated Red Blood Cells 1 (0-5); Platelet Estimate Decreased; Segmented Neutrophils 94 % (50-85); Total Cells Counted 100
[2020-11-25 07:28] LABS: Hypochromasia 2+
[2020-11-25] MEDS: POLYETHYLENE GLYCOL POWDER 17 GM PACK PO SCH (08:17)
[2020-11-25] MEDS: ATORVASTATIN 40 MG TABLET PO SCH (08:18)
[2020-11-25] MEDS: allopurinoL 300 MG TABLET PO SCH (08:18)
[2020-11-25] MEDS: METOPROLOL TARTRATE 25 MG TABLET PO SCH ×2 (08:18→23:29)
[2020-11-25] MEDS: ESCITALOPRAM 10 MG TABLET PO SCH (08:18)
[2020-11-25] MEDS: TAMSULOSIN 0.4 MG CAPSULE PO SCH ×2 (08:18→23:29)
[2020-11-25] MEDS: ASPIRIN CHEW 81 MG TABLET PO SCH (08:18)
[2020-11-25] MEDS: ALPRAZolam 0.25 MG TABLET PO PRN ×2 (08:18→23:29)
[2020-11-25] MEDS: PANTOPRAZOLE 40 MG VIAL IV SCH (08:19)
[2020-11-25] MEDS: ZINC SULFATE 220 MG CAPSULE PO SCH (08:19)
[2020-11-25] MEDS: CHOLECALCIFEROL 1,000 UNIT TABLET PO SCH (08:19)
[2020-11-25] MEDS: BACITRACIN OINT 0.9 GM PACK TOP SCH ×3 (08:21→23:29)
[2020-11-25] MEDS: OXYMETAZOLINE 0.05% NASAL SPRAY 15 ML BOTTLE BOTH NARES SCH (08:21)
[2020-11-25] MEDS: MULTIVITAMIN LIQUID (CENTRUM) 60 ML BOTTLE NG SCH (08:21)
[2020-11-25] MEDS: DOCUSATE SODIUM 100 MG/10 ML UDCUP PO SCH ×2 (08:26→23:29)
[2020-11-25] MEDS: MIDAZOLAM 100 MG in SODIUM CHLORIDE 0.9% 80 ML IV PRN (09:00)
[2020-11-25] MEDS: ENOXAPARIN 30 MG/0.3 ML SYRINGE SUBCUT SCH (10:09)
[2020-11-25] MEDS: MICAFUNGIN 100 MG in SODIUM CHLORIDE 0.9% 100 ML IV SCH (12:43)
[2020-11-26] MEDS: INSULIN REGULAR 100 UNIT/ML SUBCUT SCH ×4 (00:36→17:26)
[2020-11-26] MEDS: METOCLOPRAMIDE 10 MG/2 ML VIAL IV SCH ×4 (00:49→18:12)
[2020-11-26] MEDS: MEROPENEM 500 MG in SODIUM CHLORIDE 0.9% 100 ML IV SCH (00:50)
[2020-11-26] MEDS: methylPREDNISolone SOD SUC 40 MG/1 ML VIAL IV SCH ×3 (00:50→16:23)
[2020-11-26] MEDS: SODIUM BICARB INJ 150 MEQ in STERILE WATER INJ 850 ML IV SCH (01:34)
[2020-11-26] MEDS: ALBUTEROL 2.5 MG/3 ML NEB RESP TX SCH ×5 (02:54→19:17)
[2020-11-26 04:44] LABS: ABG Base Excess 11.6 MMOL/L (-2.5-2.5); ABG HCO3 35.3 MMOL/L (20-26); ABG Oxygen Saturation 96.9 % (95-100); ABG PH 7.415 (7.35-7.45); ABG PO2 86.5 MM HG (80-95); ABG TCO2 34.9 MMOL/L (23-27)
[2020-11-26 04:45] LABS: Allen Test Positive; Pt O2 Delivery Device Ventilator
[2020-11-26 05:11] LABS: Basophils % 0.2 % (0.0-0.8); Hematocrit 31.6 VOL% (42.0-52.0); Hemoglobin 10.1 GM/DL (14.0-18.0); Immature Granulocytes % 4.7 %; Immature Granulocytes Absolute 0.41 #; Lymphocytes # 0.3 10*3/uL (1.4-4.0); Lymphocytes % 3.4 % (21.2-54.2); Mean Corpuscular Volume 99.4 FL (87-102); Mean Platelet Volume 10.5 FL (9.6-12.0); NRBC # 0.04 10*3/uL; Neutrophils % 88.7 % (38.7-73.9); Platelet Count 124 T/CUMM (130-400); Red Blood Count 3.18 MC/CUMM (3.8-5.5); Red Cell Distribution Width 14.3 % (9.3-17.3); White Blood Count 8.7 T/CUMM (4-12)
[2020-11-26 05:32] LABS: Lymphocytes 3 % (20-55); Nucleated Red Blood Cells 1 (0-5); Segmented Neutrophils 93 % (50-85); Total Cells Counted 100
[2020-11-26 05:33] LABS: Hypochromasia 2+; Macrocytosis Slight
[2020-11-26 05:40] LABS: Calcium 7.9 MG/DL (8.5-10.1)
[2020-11-26 06:03] LABS: Osmolality,Calculated 309.7 MOS/KG (273-304)
[2020-11-26] MEDS: fentaNYL INJ 1,250 MCG in SODIUM CHLORIDE 0.9% 225 ML IV PRN ×2 (07:45→16:11)
[2020-11-26] MEDS: OXYMETAZOLINE 0.05% NASAL SPRAY 15 ML BOTTLE BOTH NARES SCH (10:50)
[2020-11-26] MEDS: ESCITALOPRAM 10 MG TABLET PO SCH (10:51)
[2020-11-26] MEDS: BACITRACIN OINT 0.9 GM PACK TOP SCH ×3 (10:51→20:25)
[2020-11-26] MEDS: ASPIRIN CHEW 81 MG TABLET PO SCH (10:51)
[2020-11-26] MEDS: TAMSULOSIN 0.4 MG CAPSULE PO SCH ×2 (10:51→20:26)
[2020-11-26] MEDS: DOCUSATE SODIUM 100 MG/10 ML UDCUP PO SCH ×2 (10:51→20:25)
[2020-11-26] MEDS: allopurinoL 300 MG TABLET PO SCH (10:52)
[2020-11-26] MEDS: POLYETHYLENE GLYCOL POWDER 17 GM PACK PO SCH (10:52)
[2020-11-26] MEDS: ATORVASTATIN 40 MG TABLET PO SCH (10:52)
[2020-11-26] MEDS: METOPROLOL TARTRATE 25 MG TABLET PO SCH ×2 (10:52→20:26)
[2020-11-26] MEDS: CHOLECALCIFEROL 1,000 UNIT TABLET PO SCH (10:52)
[2020-11-26] MEDS: ZINC SULFATE 220 MG CAPSULE PO SCH (10:52)
[2020-11-26] MEDS: PANTOPRAZOLE 40 MG VIAL IV SCH (10:53)
[2020-11-26] MEDS: cefTRIAXone 1,000 MG in SYRINGE 1 EACH IV SCH (11:03)
[2020-11-26] MEDS: MULTIVITAMIN LIQUID (CENTRUM) 60 ML BOTTLE NG SCH (11:43)
[2020-11-26] MEDS: ENOXAPARIN 30 MG/0.3 ML SYRINGE SUBCUT SCH (11:43)
[2020-11-27] MEDS: ALBUTEROL 2.5 MG/3 ML NEB RESP TX SCH ×7 (00:07→23:30)
[2020-11-27] MEDS: fentaNYL INJ 1,250 MCG in SODIUM CHLORIDE 0.9% 225 ML IV PRN ×5 (00:12→23:33)
[2020-11-27] MEDS: INSULIN REGULAR 100 UNIT/ML SUBCUT SCH ×4 (00:12→18:10)
[2020-11-27] MEDS: METOCLOPRAMIDE 10 MG/2 ML VIAL IV SCH ×4 (00:37→18:14)
[2020-11-27] MEDS: methylPREDNISolone SOD SUC 40 MG/1 ML VIAL IV SCH ×3 (00:37→16:33)
[2020-11-27 03:12] LABS: ABG Base Excess 13.1 MMOL/L (-2.5-2.5); ABG HCO3 39.3 MMOL/L (20-26); ABG Oxygen Saturation 98.1 % (95-100); ABG PCO2 59.4 MM HG (35-48); ABG PH 7.439 (7.35-7.45); ABG PO2 118.5 MM HG (80-95); ABG TCO2 41.2 MMOL/L (23-27)
[2020-11-27] MEDS: MIDAZOLAM 100 MG in SODIUM CHLORIDE 0.9% 80 ML IV PRN (04:20)
[2020-11-27 04:53] LABS: Basophils % 0.2 % (0.0-0.8); Hematocrit 32.1 VOL% (42.0-52.0); Hemoglobin 10.3 GM/DL (14.0-18.0); Immature Granulocytes % 4.7 %; Lymphocytes # 0.3 10*3/uL (1.4-4.0); Lymphocytes % 2.3 % (21.2-54.2); Mean Corpuscular HGB Conc 32.1 GM/DL (32-36); Mean Corpuscular Volume 98.2 FL (87-102); Mean Platelet Volume 10.3 FL (9.6-12.0); Monocytes % 2.5 % (1.7-12.7); NRBC # 0.04 10*3/uL; Neutrophils % 90.3 % (38.7-73.9); Platelet Count 145 T/CUMM (130-400); Red Blood Count 3.27 MC/CUMM (3.8-5.5); Red Cell Distribution Width 14.3 % (9.3-17.3); White Blood Count 10.8 T/CUMM (4-12)
[2020-11-27 05:14] LABS: Calcium 7.8 MG/DL (8.5-10.1); Osmolality,Calculated 313.4 MOS/KG (273-304)
[2020-11-27 05:20] LABS: Hypochromasia 1+; Lymphocytes 2 % (20-55); Microcytosis 1+; Ovalocytes Slight; Platelet Estimate Adequate; Segmented Neutrophils 94 % (50-85); Total Cells Counted 100
[2020-11-27] MEDS ORDERED: HYDROmorphone 2 MG/1 ML VIAL IV STA (08:54)
[2020-11-27] MEDS ORDERED: LIDOCAINE 2% 20 ML VIAL ONE (08:55)
[2020-11-27] MEDS: allopurinoL 300 MG TABLET PO SCH (10:17)
[2020-11-27] MEDS: ASPIRIN CHEW 81 MG TABLET PO SCH (10:17)
[2020-11-27] MEDS: METOPROLOL TARTRATE 25 MG TABLET PO SCH ×2 (10:18→20:44)
[2020-11-27] MEDS: CHOLECALCIFEROL 1,000 UNIT TABLET PO SCH (10:18)
[2020-11-27] MEDS: ESCITALOPRAM 10 MG TABLET PO SCH (10:18)
[2020-11-27] MEDS: ZINC SULFATE 220 MG CAPSULE PO SCH (10:19)
[2020-11-27] MEDS: ATORVASTATIN 40 MG TABLET PO SCH (10:19)
[2020-11-27] MEDS: DOCUSATE SODIUM 100 MG/10 ML UDCUP PO SCH ×2 (10:20→20:43)
[2020-11-27] MEDS: BACITRACIN OINT 0.9 GM PACK TOP SCH ×3 (10:20→20:43)
[2020-11-27] MEDS: OXYMETAZOLINE 0.05% NASAL SPRAY 15 ML BOTTLE BOTH NARES SCH (10:20)
[2020-11-27] MEDS: TAMSULOSIN 0.4 MG CAPSULE PO SCH ×2 (10:20→20:44)
[2020-11-27] MEDS: POLYETHYLENE GLYCOL POWDER 17 GM PACK PO SCH (10:21)
[2020-11-27] MEDS: ENOXAPARIN 30 MG/0.3 ML SYRINGE SUBCUT SCH (10:21)
[2020-11-27] MEDS: MULTIVITAMIN LIQUID (CENTRUM) 60 ML BOTTLE NG SCH (10:22)
[2020-11-27] MEDS: PANTOPRAZOLE 40 MG VIAL IV SCH (10:23)
[2020-11-27] MEDS: cefTRIAXone 1,000 MG in SYRINGE 1 EACH IV SCH (10:27)
[2020-11-28] MEDS: INSULIN REGULAR 100 UNIT/ML SUBCUT SCH ×5 (00:29→23:44)
[2020-11-28] MEDS: METOCLOPRAMIDE 10 MG/2 ML VIAL IV SCH ×5 (00:47→23:59)
[2020-11-28] MEDS: methylPREDNISolone SOD SUC 40 MG/1 ML VIAL IV SCH ×3 (00:47→17:05)
[2020-11-28] MEDS: LACTULOSE 20 GM/30 ML UDCUP PO PRN (00:48)
[2020-11-28] MEDS: ALPRAZolam 0.25 MG TABLET PO PRN ×2 (00:48→21:47)
[2020-11-28 02:44] LABS: ABG Base Excess 11.1 MMOL/L (-2.5-2.5); ABG HCO3 34.9 MMOL/L (20-26); ABG Oxygen Saturation 96.9 % (95-100); ABG PCO2 63.7 MM HG (35-48); ABG PH 7.389 (7.35-7.45); ABG PO2 89.2 MM HG (80-95); ABG TCO2 35.1 MMOL/L (23-27)
[2020-11-28] MEDS: fentaNYL INJ 1,250 MCG in SODIUM CHLORIDE 0.9% 225 ML IV PRN ×2 (04:03→08:47)
[2020-11-28] MEDS: ALBUTEROL 2.5 MG/3 ML NEB RESP TX SCH ×7 (04:13→23:54)
[2020-11-28 04:44] LABS: Basophils % 0.3 % (0.0-0.8); Hematocrit 34.8 VOL% (42.0-52.0); Hemoglobin 10.9 GM/DL (14.0-18.0); Immature Granulocytes % 3.5 %; Immature Granulocytes Absolute 0.51 #; Lymphocytes # 0.5 10*3/uL (1.4-4.0); Lymphocytes % 3.7 % (21.2-54.2); Mean Corpuscular HGB Conc 31.3 GM/DL (32-36); Mean Corpuscular Volume 98.9 FL (87-102); Mean Platelet Volume 11.1 FL (9.6-12.0); Monocytes % 2.8 % (1.7-12.7); NRBC # 0.07 10*3/uL; Neutrophils % 89.7 % (38.7-73.9); Platelet Count 172 T/CUMM (130-400); Red Blood Count 3.52 MC/CUMM (3.8-5.5); Red Cell Distribution Width 14.3 % (9.3-17.3); White Blood Count 14.5 T/CUMM (4-12)
[2020-11-28 04:51] LABS: Calcium 8.2 MG/DL (8.5-10.1); Osmolality,Calculated 313.3 MOS/KG (273-304)
[2020-11-28 05:10] LABS: Hypochromasia 1+; Lymphocytes 4 % (20-55); Microcytosis 1+; Platelet Estimate Adequate; Segmented Neutrophils 94 % (50-85); Total Cells Counted 100
[2020-11-28] MEDS: DOCUSATE SODIUM 100 MG/10 ML UDCUP PO SCH ×2 (08:48→20:52)
[2020-11-28] MEDS: cefTRIAXone 1,000 MG in SYRINGE 1 EACH IV SCH (08:49)
[2020-11-28] MEDS: POLYETHYLENE GLYCOL POWDER 17 GM PACK PO SCH (08:49)
[2020-11-28] MEDS: CHOLECALCIFEROL 1,000 UNIT TABLET PO SCH (08:49)
[2020-11-28] MEDS: PANTOPRAZOLE 40 MG VIAL IV SCH (08:49)
[2020-11-28] MEDS: allopurinoL 300 MG TABLET PO SCH (08:50)
[2020-11-28] MEDS: ZINC SULFATE 220 MG CAPSULE PO SCH (08:50)
[2020-11-28] MEDS: ATORVASTATIN 40 MG TABLET PO SCH (08:50)
[2020-11-28] MEDS: ESCITALOPRAM 10 MG TABLET PO SCH (08:50)
[2020-11-28] MEDS: METOPROLOL TARTRATE 25 MG TABLET PO SCH ×2 (08:50→20:52)
[2020-11-28] MEDS: ASPIRIN CHEW 81 MG TABLET PO SCH (08:50)
[2020-11-28] MEDS: TAMSULOSIN 0.4 MG CAPSULE PO SCH ×2 (08:50→20:52)
[2020-11-28] MEDS: OXYMETAZOLINE 0.05% NASAL SPRAY 15 ML BOTTLE BOTH NARES SCH (08:51)
[2020-11-28] MEDS: BACITRACIN OINT 0.9 GM PACK TOP SCH ×3 (08:51→20:52)
[2020-11-28] MEDS: SODIUM CHLORIDE 0.65% NASAL SPRAY 45 ML BOTTLE BOTH NARES PRN (08:51)
[2020-11-28] MEDS: MULTIVITAMIN LIQUID (CENTRUM) 60 ML BOTTLE NG SCH (09:09)
[2020-11-28] MEDS: ENOXAPARIN 30 MG/0.3 ML SYRINGE SUBCUT SCH (10:25)
[2020-11-28] MEDS: VANCOMYCIN INJ 1,250 MG in SODIUM CHLORIDE 0.9% 250 ML IV SCH (10:25)
[2020-11-28] MEDS: MIDAZOLAM 100 MG in SODIUM CHLORIDE 0.9% 80 ML IV PRN (11:49)
[2020-11-29] MEDS: methylPREDNISolone SOD SUC 40 MG/1 ML VIAL IV SCH ×3 (00:01→16:38)
[2020-11-29 03:55] LABS: Basophils % 0.3 % (0.0-0.8); Eosinophils % 0.2 % (0.00-10.9); Hematocrit 29.9 VOL% (42.0-52.0); Hemoglobin 9.5 GM/DL (14.0-18.0); Immature Granulocytes % 2.8 %; Immature Granulocytes Absolute 0.33 #; Lymphocytes # 0.4 10*3/uL (1.4-4.0); Lymphocytes % 3.1 % (21.2-54.2); Mean Corpuscular HGB Conc 31.8 GM/DL (32-36); Mean Corpuscular Volume 97.7 FL (87-102); Mean Platelet Volume 10.9 FL (9.6-12.0); Monocytes % 2.5 % (1.7-12.7); NRBC # 0.02 10*3/uL; Neutrophils % 91.1 % (38.7-73.9); Red Blood Count 3.06 MC/CUMM (3.8-5.5); Red Cell Distribution Width 14.3 % (9.3-17.3); White Blood Count 11.6 T/CUMM (4-12)
[2020-11-29] MEDS: ALBUTEROL 2.5 MG/3 ML NEB RESP TX SCH ×6 (04:00→23:33)
[2020-11-29 04:04] LABS: Platelet Count 121 T/CUMM (130-400)
[2020-11-29 04:18] LABS: Band Neutrophils 1 % (0-10); Hypochromasia 1+; Lymphocytes 3 % (20-55); Microcytosis 1+; Ovalocytes Slight; Segmented Neutrophils 92 % (50-85); Total Cells Counted 100
[2020-11-29 04:21] LABS: Calcium 8.2 MG/DL (8.5-10.1); Osmolality,Calculated 304.8 MOS/KG (273-304)
[2020-11-29 05:20] LABS: ABG Base Excess 8.8 MMOL/L (-2.5-2.5); ABG HCO3 34.9 MMOL/L (20-26); ABG Oxygen Saturation 96.9 % (95-100); ABG PCO2 54.5 MM HG (35-48); ABG PH 7.424 (7.35-7.45); ABG PO2 93.6 MM HG (80-95); ABG TCO2 36.5 MMOL/L (23-27); Allen Test Positive; Pt O2 Delivery Device Ventilator
[2020-11-29] MEDS: INSULIN REGULAR 100 UNIT/ML SUBCUT SCH ×4 (05:45→23:29)
[2020-11-29] MEDS: METOCLOPRAMIDE 10 MG/2 ML VIAL IV SCH ×3 (05:47→18:06)
[2020-11-29] MEDS: PANTOPRAZOLE 40 MG VIAL IV SCH (08:02)
[2020-11-29] MEDS: POLYETHYLENE GLYCOL POWDER 17 GM PACK PO SCH (08:03)
[2020-11-29] MEDS: cefTRIAXone 1,000 MG in SYRINGE 1 EACH IV SCH (08:03)
[2020-11-29] MEDS: TAMSULOSIN 0.4 MG CAPSULE PO SCH ×2 (08:04→20:27)
[2020-11-29] MEDS: ESCITALOPRAM 10 MG TABLET PO SCH (08:04)
[2020-11-29] MEDS: CHOLECALCIFEROL 1,000 UNIT TABLET PO SCH (08:04)
[2020-11-29] MEDS: ZINC SULFATE 220 MG CAPSULE PO SCH (08:04)
[2020-11-29] MEDS: ASPIRIN CHEW 81 MG TABLET PO SCH (08:04)
[2020-11-29] MEDS: OXYMETAZOLINE 0.05% NASAL SPRAY 15 ML BOTTLE BOTH NARES SCH (08:04)
[2020-11-29] MEDS: ATORVASTATIN 40 MG TABLET PO SCH (08:04)
[2020-11-29] MEDS: DOCUSATE SODIUM 100 MG/10 ML UDCUP PO SCH ×2 (08:04→20:27)
[2020-11-29] MEDS: allopurinoL 300 MG TABLET PO SCH (08:04)
[2020-11-29] MEDS: BACITRACIN OINT 0.9 GM PACK TOP SCH ×3 (08:05→20:27)
[2020-11-29] MEDS: METOPROLOL TARTRATE 25 MG TABLET PO SCH ×3 (08:05→20:27)
[2020-11-29] MEDS: MULTIVITAMIN LIQUID (CENTRUM) 60 ML BOTTLE NG SCH (08:07)
[2020-11-29] MEDS: VANCOMYCIN INJ 1,250 MG in SODIUM CHLORIDE 0.9% 250 ML IV SCH (09:00)
[2020-11-29] MEDS: ENOXAPARIN 30 MG/0.3 ML SYRINGE SUBCUT SCH (11:42)
[2020-11-29] MEDS: MIDAZOLAM 100 MG in SODIUM CHLORIDE 0.9% 80 ML IV PRN (11:54)
[2020-11-29] MEDS: ALPRAZolam 0.25 MG TABLET PO PRN (13:13)
[2020-11-29] MEDS: PHENYLEPHRINE DRIP 40 MG/250 ML PREMIX IV PRN (21:44)
[2020-11-30] MEDS: METOCLOPRAMIDE 10 MG/2 ML VIAL IV SCH ×4 (00:10→18:00)
[2020-11-30] MEDS: methylPREDNISolone SOD SUC 40 MG/1 ML VIAL IV SCH ×3 (00:11→17:54)
[2020-11-30] MEDS: ALBUTEROL 2.5 MG/3 ML NEB RESP TX SCH ×6 (03:00→23:17)
[2020-11-30 04:50] LABS: Basophils % 0.1 % (0.0-0.8); Hemoglobin 10.1 GM/DL (14.0-18.0); Immature Granulocytes % 2.4 %; Immature Granulocytes Absolute 0.34 #; Lymphocytes # 0.3 10*3/uL (1.4-4.0); Mean Corpuscular HGB Conc 32.6 GM/DL (32-36); Mean Corpuscular Volume 96.3 FL (87-102); Mean Platelet Volume 11.2 FL (9.6-12.0); Monocytes % 2.4 % (1.7-12.7); Neutrophils % 93.1 % (38.7-73.9); Platelet Count 152 T/CUMM (130-400); Red Blood Count 3.22 MC/CUMM (3.8-5.5); Red Cell Distribution Width 14.2 % (9.3-17.3)
[2020-11-30 04:51] LABS: ABG Base Excess 8.8 MMOL/L (-2.5-2.5); ABG HCO3 32.6 MMOL/L (20-26); ABG Oxygen Saturation 97.9 % (95-100); ABG PCO2 52.8 MM HG (35-48); ABG PH 7.428 (7.35-7.45); ABG TCO2 30.8 MMOL/L (23-27)
[2020-11-30 05:14] LABS: Calcium 8.3 MG/DL (8.5-10.1); Osmolality,Calculated 307.7 MOS/KG (273-304)
[2020-11-30 05:17] LABS: Band Neutrophils 1 % (0-10); Lymphocytes 3 % (20-55); Platelet Estimate Normal; Segmented Neutrophils 94 % (50-85); Total Cells Counted 100
[2020-11-30 05:18] LABS: Hypochromasia Slight
[2020-11-30] MEDS: INSULIN REGULAR 100 UNIT/ML SUBCUT SCH ×3 (06:15→19:00)
[2020-11-30] MEDS: DOCUSATE SODIUM 100 MG/10 ML UDCUP PO SCH ×2 (09:14→22:17)
[2020-11-30] MEDS: ZINC SULFATE 220 MG CAPSULE PO SCH (09:14)
[2020-11-30] MEDS: TAMSULOSIN 0.4 MG CAPSULE PO SCH ×2 (09:14→22:17)
[2020-11-30] MEDS: allopurinoL 300 MG TABLET PO SCH (09:14)
[2020-11-30] MEDS: ESCITALOPRAM 10 MG TABLET PO SCH (09:14)
[2020-11-30] MEDS: ATORVASTATIN 40 MG TABLET PO SCH (09:14)
[2020-11-30] MEDS: CHOLECALCIFEROL 1,000 UNIT TABLET PO SCH (09:14)
[2020-11-30] MEDS: METOPROLOL TARTRATE 25 MG TABLET PO SCH ×2 (09:14→22:17)
[2020-11-30] MEDS: ASPIRIN CHEW 81 MG TABLET PO SCH (09:14)
[2020-11-30] MEDS: BACITRACIN OINT 0.9 GM PACK TOP SCH ×3 (09:16→22:17)
[2020-11-30] MEDS: MULTIVITAMIN LIQUID (CENTRUM) 60 ML BOTTLE NG SCH (09:19)
[2020-11-30] MEDS: POLYETHYLENE GLYCOL POWDER 17 GM PACK PO SCH (09:20)
[2020-11-30] MEDS: PANTOPRAZOLE 40 MG VIAL IV SCH (09:20)
[2020-11-30] MEDS: cefTRIAXone 1,000 MG in SYRINGE 1 EACH IV SCH (09:23)
[2020-11-30] MEDS: OXYMETAZOLINE 0.05% NASAL SPRAY 15 ML BOTTLE BOTH NARES SCH (09:30)
[2020-11-30] MEDS: MIDAZOLAM 100 MG in SODIUM CHLORIDE 0.9% 80 ML IV PRN (09:52)
[2020-11-30] MEDS: ENOXAPARIN 30 MG/0.3 ML SYRINGE SUBCUT SCH (11:45)
[2020-11-30] MEDS: VANCOMYCIN INJ 1,250 MG in SODIUM CHLORIDE 0.9% 250 ML IV SCH (11:47)
[2020-12-01] MEDS: INSULIN REGULAR 100 UNIT/ML SUBCUT SCH ×4 (00:27→18:42)
[2020-12-01] MEDS: METOCLOPRAMIDE 10 MG/2 ML VIAL IV SCH ×4 (00:27→17:44)
[2020-12-01] MEDS: methylPREDNISolone SOD SUC 40 MG/1 ML VIAL IV SCH ×3 (00:29→17:45)
[2020-12-01] MEDS: ALBUTEROL 2.5 MG/3 ML NEB RESP TX SCH ×6 (02:59→23:32)
[2020-12-01 03:00] LABS: ABG Base Excess 8.9 MMOL/L (-2.5-2.5); ABG HCO3 32.6 MMOL/L (20-26); ABG Oxygen Saturation 98.1 % (95-100); ABG PCO2 50.6 MM HG (35-48); ABG PH 7.441 (7.35-7.45); ABG TCO2 31.2 MMOL/L (23-27); Allen Test Positive; Pt O2 Delivery Device Ventilator
[2020-12-01 04:07] LABS: Basophils % 0.2 % (0.0-0.8); Hematocrit 29.4 VOL% (42.0-52.0); Hemoglobin 9.7 GM/DL (14.0-18.0); Immature Granulocytes % 2.5 %; Immature Granulocytes Absolute 0.27 #; Lymphocytes # 0.2 10*3/uL (1.4-4.0); Lymphocytes % 2.2 % (21.2-54.2); Mean Corpuscular Volume 95.8 FL (87-102); Mean Platelet Volume 11.1 FL (9.6-12.0); Monocytes % 1.6 % (1.7-12.7); Neutrophils % 93.5 % (38.7-73.9); Platelet Count 135 T/CUMM (130-400); Red Blood Count 3.07 MC/CUMM (3.8-5.5); Red Cell Distribution Width 14.1 % (9.3-17.3); White Blood Count 10.8 T/CUMM (4-12)
[2020-12-01 04:20] LABS: Osmolality,Calculated 308.7 MOS/KG (273-304)
[2020-12-01 04:56] LABS: Lymphocytes 1 % (20-55); Platelet Estimate Normal; Segmented Neutrophils 96 % (50-85); Total Cells Counted 100
[2020-12-01 04:57] LABS: Hypochromasia 1+; Microcytosis 1+; Ovalocytes Slight
[2020-12-01] MEDS: MIDAZOLAM 100 MG in SODIUM CHLORIDE 0.9% 80 ML IV PRN (07:31)
[2020-12-01] MEDS: CHOLECALCIFEROL 1,000 UNIT TABLET PO SCH (08:49)
[2020-12-01] MEDS: allopurinoL 300 MG TABLET PO SCH (08:49)
[2020-12-01] MEDS: ASPIRIN CHEW 81 MG TABLET PO SCH (08:49)
[2020-12-01] MEDS: ESCITALOPRAM 10 MG TABLET PO SCH (08:49)
[2020-12-01] MEDS: ZINC SULFATE 220 MG CAPSULE PO SCH (08:50)
[2020-12-01] MEDS: DOCUSATE SODIUM 100 MG/10 ML UDCUP PO SCH ×2 (08:50→22:49)
[2020-12-01] MEDS: ALPRAZolam 0.25 MG TABLET PO PRN (08:50)
[2020-12-01] MEDS: OXYMETAZOLINE 0.05% NASAL SPRAY 15 ML BOTTLE BOTH NARES SCH (08:50)
[2020-12-01] MEDS: BACITRACIN OINT 0.9 GM PACK TOP SCH ×3 (08:50→22:49)
[2020-12-01] MEDS: METOPROLOL TARTRATE 25 MG TABLET PO SCH ×2 (08:50→22:49)
[2020-12-01] MEDS: ATORVASTATIN 40 MG TABLET PO SCH (08:50)
[2020-12-01] MEDS: TAMSULOSIN 0.4 MG CAPSULE PO SCH ×2 (08:50→22:49)
[2020-12-01] MEDS: MULTIVITAMIN LIQUID (CENTRUM) 60 ML BOTTLE NG SCH (08:50)
[2020-12-01] MEDS: POLYETHYLENE GLYCOL POWDER 17 GM PACK PO SCH (08:51)
[2020-12-01] MEDS: PANTOPRAZOLE 40 MG VIAL IV SCH (08:51)
[2020-12-01] MEDS: cefTRIAXone 1,000 MG in SYRINGE 1 EACH IV SCH (08:55)
[2020-12-01] MEDS: VANCOMYCIN INJ 1,250 MG in SODIUM CHLORIDE 0.9% 250 ML IV SCH (11:52)
[2020-12-01] MEDS: ENOXAPARIN 40 MG/0.4 ML SYRINGE SUBCUT SCH (14:11)
[2020-12-02] MEDS: methylPREDNISolone SOD SUC 40 MG/1 ML VIAL IV SCH ×4 (01:04→23:55)
[2020-12-02] MEDS: METOCLOPRAMIDE 10 MG/2 ML VIAL IV SCH ×5 (01:06→23:53)
[2020-12-02] MEDS: INSULIN REGULAR 100 UNIT/ML SUBCUT SCH ×5 (01:06→23:53)
[2020-12-02] MEDS: MIDAZOLAM 100 MG in SODIUM CHLORIDE 0.9% 80 ML IV PRN (02:45)
[2020-12-02 04:08] LABS: ABG Base Excess 8.4 MMOL/L (-2.5-2.5); ABG HCO3 32.2 MMOL/L (20-26); ABG Oxygen Saturation 96.7 % (95-100); ABG PCO2 48.4 MM HG (35-48); ABG PH 7.451 (7.35-7.45); ABG TCO2 30.2 MMOL/L (23-27)
[2020-12-02] MEDS: ALBUTEROL 2.5 MG/3 ML NEB RESP TX SCH ×5 (04:41→19:45)
[2020-12-02 05:46] LABS: Basophils % 0.2 % (0.0-0.8); Eosinophils % 0.1 % (0.00-10.9); Hematocrit 28.5 VOL% (42.0-52.0); Hemoglobin 9.4 GM/DL (14.0-18.0); Immature Granulocytes Absolute 0.62 #; Lymphocytes # 0.3 10*3/uL (1.4-4.0); Lymphocytes % 2.6 % (21.2-54.2); Mean Corpuscular Volume 97.3 FL (87-102); Mean Platelet Volume 11.6 FL (9.6-12.0); Monocytes % 2.7 % (1.7-12.7); Neutrophils % 89.4 % (38.7-73.9); Platelet Count 138 T/CUMM (130-400); Red Blood Count 2.93 MC/CUMM (3.8-5.5); Red Cell Distribution Width 14.3 % (9.3-17.3); White Blood Count 12.5 T/CUMM (4-12)
[2020-12-02 06:09] LABS: Calcium 7.8 MG/DL (8.5-10.1); Osmolality,Calculated 306.4 MOS/KG (273-304)
[2020-12-02 06:51] LABS: Hypochromasia 1+; Lymphocytes 3 % (20-55); Microcytosis 1+; Platelet Estimate Adequate; Segmented Neutrophils 95 % (50-85); Total Cells Counted 100
[2020-12-02] MEDS: allopurinoL 300 MG TABLET PO SCH (09:17)
[2020-12-02] MEDS: ZINC SULFATE 220 MG CAPSULE PO SCH (09:17)
[2020-12-02] MEDS: ESCITALOPRAM 10 MG TABLET PO SCH (09:17)
[2020-12-02] MEDS: BACITRACIN OINT 0.9 GM PACK TOP SCH ×3 (09:17→20:58)
[2020-12-02] MEDS: DOCUSATE SODIUM 100 MG/10 ML UDCUP PO SCH ×2 (09:17→20:58)
[2020-12-02] MEDS: CHOLECALCIFEROL 1,000 UNIT TABLET PO SCH (09:17)
[2020-12-02] MEDS: TAMSULOSIN 0.4 MG CAPSULE PO SCH ×2 (09:17→20:58)
[2020-12-02] MEDS: ATORVASTATIN 40 MG TABLET PO SCH (09:17)
[2020-12-02] MEDS: METOPROLOL TARTRATE 25 MG TABLET PO SCH ×2 (09:17→20:58)
[2020-12-02] MEDS: ASPIRIN CHEW 81 MG TABLET PO SCH (09:17)
[2020-12-02] MEDS: POLYETHYLENE GLYCOL POWDER 17 GM PACK PO SCH (09:18)
[2020-12-02] MEDS: MULTIVITAMIN LIQUID (CENTRUM) 60 ML BOTTLE NG SCH (09:18)
[2020-12-02] MEDS: PANTOPRAZOLE 40 MG VIAL IV SCH (09:18)
[2020-12-02] MEDS: cefTRIAXone 1,000 MG in SYRINGE 1 EACH IV SCH (09:21)
[2020-12-02] MEDS: OXYMETAZOLINE 0.05% NASAL SPRAY 15 ML BOTTLE BOTH NARES SCH (11:22)
[2020-12-02] MEDS: ENOXAPARIN 40 MG/0.4 ML SYRINGE SUBCUT SCH (12:39)
[2020-12-03] MEDS: ALBUTEROL 2.5 MG/3 ML NEB RESP TX SCH ×7 (00:22→23:25)
[2020-12-03] MEDS: MIDAZOLAM 100 MG in SODIUM CHLORIDE 0.9% 80 ML IV PRN (01:17)
[2020-12-03 03:33] LABS: ABG Base Excess 7.7 MMOL/L (-2.5-2.5); ABG Oxygen Saturation 94.9 % (95-100); ABG PO2 74.8 MM HG (80-95); ABG TCO2 33.4 MMOL/L (23-27)
[2020-12-03 04:54] LABS: Basophils % 0.1 % (0.0-0.8); Eosinophils % 0.1 % (0.00-10.9); Hematocrit 26.9 VOL% (42.0-52.0); Hemoglobin 8.8 GM/DL (14.0-18.0); Immature Granulocytes % 4.8 %; Immature Granulocytes Absolute 0.65 #; Lymphocytes # 0.3 10*3/uL (1.4-4.0); Lymphocytes % 2.5 % (21.2-54.2); Mean Corpuscular HGB Conc 32.7 GM/DL (32-36); Mean Corpuscular Volume 96.1 FL (87-102); Mean Platelet Volume 11.1 FL (9.6-12.0); Monocytes % 2.3 % (1.7-12.7); NRBC # 0.03 10*3/uL; Neutrophils % 90.2 % (38.7-73.9); Platelet Count 148 T/CUMM (130-400); Red Cell Distribution Width 14.4 % (9.3-17.3); White Blood Count 13.6 T/CUMM (4-12)
[2020-12-03 05:09] LABS: Calcium 7.9 MG/DL (8.5-10.1); Osmolality,Calculated 305.7 MOS/KG (273-304)
[2020-12-03 05:16] LABS: Hypochromasia 1+; Lymphocytes 3 % (20-55); Microcytosis 1+; Platelet Estimate Adequate; Segmented Neutrophils 95 % (50-85); Total Cells Counted 100
[2020-12-03] MEDS: INSULIN REGULAR 100 UNIT/ML SUBCUT SCH ×4 (05:16→23:39)
[2020-12-03] MEDS: METOCLOPRAMIDE 10 MG/2 ML VIAL IV SCH ×4 (06:24→23:39)
[2020-12-03] MEDS: MULTIVITAMIN LIQUID (CENTRUM) 60 ML BOTTLE NG SCH (09:00)
[2020-12-03] MEDS: allopurinoL 300 MG TABLET PO SCH (10:00)
[2020-12-03] MEDS: CHOLECALCIFEROL 1,000 UNIT TABLET PO SCH (10:00)
[2020-12-03] MEDS: TAMSULOSIN 0.4 MG CAPSULE PO SCH ×2 (10:00→20:52)
[2020-12-03] MEDS: ASPIRIN CHEW 81 MG TABLET PO SCH (10:00)
[2020-12-03] MEDS: ZINC SULFATE 220 MG CAPSULE PO SCH (10:01)
[2020-12-03] MEDS: BACITRACIN OINT 0.9 GM PACK TOP SCH ×3 (10:01→20:52)
[2020-12-03] MEDS: ATORVASTATIN 40 MG TABLET PO SCH (10:01)
[2020-12-03] MEDS: cefTRIAXone 1,000 MG in SYRINGE 1 EACH IV SCH (10:02)
[2020-12-03] MEDS: ESCITALOPRAM 10 MG TABLET PO SCH (10:02)
[2020-12-03] MEDS: PANTOPRAZOLE 40 MG VIAL IV SCH (10:10)
[2020-12-03] MEDS: methylPREDNISolone SOD SUC 40 MG/1 ML VIAL IV SCH ×3 (10:11→23:39)
[2020-12-03] MEDS: ENOXAPARIN 40 MG/0.4 ML SYRINGE SUBCUT SCH (10:11)
[2020-12-03] MEDS: DOCUSATE SODIUM 100 MG/10 ML UDCUP PO SCH ×2 (10:12→20:52)
[2020-12-03] MEDS: POLYETHYLENE GLYCOL POWDER 17 GM PACK PO SCH (10:12)
[2020-12-03] MEDS: METOPROLOL TARTRATE 25 MG TABLET PO SCH ×2 (10:12→23:38)
[2020-12-03] MEDS: OXYMETAZOLINE 0.05% NASAL SPRAY 15 ML BOTTLE BOTH NARES SCH (13:39)
[2020-12-04] MEDS: MIDAZOLAM 100 MG in SODIUM CHLORIDE 0.9% 80 ML IV PRN (02:50)
[2020-12-04] MEDS: ALBUTEROL 2.5 MG/3 ML NEB RESP TX SCH ×5 (03:15→19:24)
[2020-12-04 04:25] LABS: ABG Base Excess 7.3 MMOL/L (-2.5-2.5); ABG HCO3 31.2 MMOL/L (20-26); ABG Oxygen Saturation 99.9 % (95-100); ABG PCO2 48.8 MM HG (35-48); ABG PH 7.433 (7.35-7.45); ABG TCO2 30.1 MMOL/L (23-27)
[2020-12-04 05:01] LABS: Basophils % 0.2 % (0.0-0.8); Eosinophils % 0.1 % (0.00-10.9); Hematocrit 26.5 VOL% (42.0-52.0); Hemoglobin 8.5 GM/DL (14.0-18.0); Immature Granulocytes % 5.1 %; Immature Granulocytes Absolute 0.65 #; Lymphocytes # 0.3 10*3/uL (1.4-4.0); Lymphocytes % 2.6 % (21.2-54.2); Mean Corpuscular HGB Conc 32.1 GM/DL (32-36); Mean Corpuscular Volume 97.8 FL (87-102); Mean Platelet Volume 11.5 FL (9.6-12.0); NRBC # 0.04 10*3/uL; Platelet Count 135 T/CUMM (130-400); Red Blood Count 2.71 MC/CUMM (3.8-5.5); Red Cell Distribution Width 14.6 % (9.3-17.3); White Blood Count 12.8 T/CUMM (4-12)
[2020-12-04 05:11] LABS: INR 0.9; PT Patient Result 9.9 SECS (9.8-11.9)
[2020-12-04 05:23] LABS: Calcium 8.2 MG/DL (8.5-10.1); Osmolality,Calculated 307.6 MOS/KG (273-304)
[2020-12-04 05:37] LABS: Lymphocytes 4 % (20-55); Platelet Estimate Adequate; Segmented Neutrophils 93 % (50-85); Total Cells Counted 100
[2020-12-04 05:38] LABS: Hypochromasia 1+; Microcytosis 1+; Ovalocytes Slight
[2020-12-04] MEDS: METOCLOPRAMIDE 10 MG/2 ML VIAL IV SCH ×2 (06:14→20:09)
[2020-12-04] MEDS: INSULIN REGULAR 100 UNIT/ML SUBCUT SCH ×3 (06:14→18:02)
[2020-12-04] MEDS ORDERED: LIDOCAINE 1% 20 ML VIAL ONE (08:31)
[2020-12-04] MEDS ORDERED: ROCURONIUM 50 MG/5 ML VIAL IV ONE (08:35)
[2020-12-04] MEDS ORDERED: MIDAZOLAM 2 MG/2 ML VIAL ONE (08:35)
[2020-12-04] MEDS: METOPROLOL TARTRATE 25 MG TABLET PO SCH ×2 (09:00→20:50)
[2020-12-04] MEDS: ESCITALOPRAM 10 MG TABLET PO SCH (09:00)
[2020-12-04] MEDS: allopurinoL 300 MG TABLET PO SCH (09:00)
[2020-12-04] MEDS: ASPIRIN CHEW 81 MG TABLET PO SCH (09:00)
[2020-12-04] MEDS: POLYETHYLENE GLYCOL POWDER 17 GM PACK PO SCH (09:00)
[2020-12-04] MEDS: DOCUSATE SODIUM 100 MG/10 ML UDCUP PO SCH ×2 (09:00→20:49)
[2020-12-04] MEDS: ZINC SULFATE 220 MG CAPSULE PO SCH (09:00)
[2020-12-04] MEDS: TAMSULOSIN 0.4 MG CAPSULE PO SCH ×2 (09:00→20:50)
[2020-12-04] MEDS: methylPREDNISolone SOD SUC 40 MG/1 ML VIAL IV SCH ×2 (09:00→17:38)
[2020-12-04] MEDS: MULTIVITAMIN LIQUID (CENTRUM) 60 ML BOTTLE NG SCH (09:00)
[2020-12-04] MEDS: ATORVASTATIN 40 MG TABLET PO SCH (09:00)
[2020-12-04] MEDS: PANTOPRAZOLE 40 MG VIAL IV SCH (09:00)
[2020-12-04] MEDS: LACTATED RINGERS 1,000 ML IV SCH (09:05)
[2020-12-04] MEDS: OXYMETAZOLINE 0.05% NASAL SPRAY 15 ML BOTTLE BOTH NARES SCH (09:10)
[2020-12-04] MEDS: BACITRACIN OINT 0.9 GM PACK TOP SCH ×3 (09:10→20:50)
[2020-12-04] MEDS ORDERED: fentaNYL 100 MCG/2 ML VIAL ONE (09:40)
[2020-12-04] MEDS ORDERED: SEVOFLURANE 1 UNIT/15 MINUTE INH ONE (09:55)
[2020-12-04] MEDS ORDERED: PHENYLEPHRINE 1 MG/10 ML SYRINGE IV ONE (09:55)
[2020-12-04] MEDS: cefTRIAXone 1,000 MG in SYRINGE 1 EACH IV SCH (11:31)
[2020-12-04] MEDS: CHOLECALCIFEROL 1,000 UNIT TABLET PO SCH (11:37)
[2020-12-05] MEDS: ALBUTEROL 2.5 MG/3 ML NEB RESP TX SCH ×7 (00:09→23:25)
[2020-12-05] MEDS: INSULIN REGULAR 100 UNIT/ML SUBCUT SCH ×4 (00:11→18:27)
[2020-12-05] MEDS: methylPREDNISolone SOD SUC 40 MG/1 ML VIAL IV SCH ×3 (00:13→18:27)
[2020-12-05] MEDS: METOCLOPRAMIDE 10 MG/2 ML VIAL IV SCH ×4 (00:13→18:32)
[2020-12-05 05:01] LABS: Allen Test Positive; Pt O2 Delivery Device Ventilator
[2020-12-05 05:02] LABS: ABG Base Excess 4.4 MMOL/L (-2.5-2.5); ABG PCO2 47.9 MM HG (35-48); ABG PH 7.414 (7.35-7.45); ABG PO2 102.6 MM HG (80-95); ABG TCO2 31.4 MMOL/L (23-27)
[2020-12-05 05:03] LABS: ABG Oxygen Saturation 97.7 % (95-100)
[2020-12-05 05:24] LABS: Basophils % 0.1 % (0.0-0.8); Hematocrit 28.5 VOL% (42.0-52.0); Hemoglobin 9.2 GM/DL (14.0-18.0); Immature Granulocytes % 4.3 %; Immature Granulocytes Absolute 0.59 #; Lymphocytes # 0.3 10*3/uL (1.4-4.0); Lymphocytes % 2.1 % (21.2-54.2); Mean Corpuscular HGB Conc 32.3 GM/DL (32-36); Mean Corpuscular Volume 98.6 FL (87-102); Mean Platelet Volume 11.4 FL (9.6-12.0); Monocytes % 2.5 % (1.7-12.7); NRBC # 0.04 10*3/uL; Platelet Count 141 T/CUMM (130-400); Red Blood Count 2.89 MC/CUMM (3.8-5.5); Red Cell Distribution Width 14.8 % (9.3-17.3); White Blood Count 13.8 T/CUMM (4-12)
[2020-12-05 05:39] LABS: Calcium 8.3 MG/DL (8.5-10.1); Osmolality,Calculated 310.3 MOS/KG (273-304)
[2020-12-05 05:45] LABS: Band Neutrophils 2 % (0-10); Hypochromasia 1+; Lymphocytes 6 % (20-55); Microcytosis 1+; Platelet Estimate Adequate; Segmented Neutrophils 91 % (50-85); Total Cells Counted 100
[2020-12-05] MEDS: LACTATED RINGERS 1,000 ML IV SCH (08:33)
[2020-12-05] MEDS: ATORVASTATIN 40 MG TABLET PO SCH (09:20)
[2020-12-05] MEDS: TAMSULOSIN 0.4 MG CAPSULE PO SCH ×2 (09:20→20:32)
[2020-12-05] MEDS: ESCITALOPRAM 10 MG TABLET PO SCH (09:20)
[2020-12-05] MEDS: METOPROLOL TARTRATE 25 MG TABLET PO SCH ×2 (09:20→20:31)
[2020-12-05] MEDS: ZINC SULFATE 220 MG CAPSULE PO SCH (09:20)
[2020-12-05] MEDS: ASPIRIN CHEW 81 MG TABLET PO SCH (09:20)
[2020-12-05] MEDS: BACITRACIN OINT 0.9 GM PACK TOP SCH ×2 (09:20→14:28)
[2020-12-05] MEDS: allopurinoL 300 MG TABLET PO SCH (09:20)
[2020-12-05] MEDS: DOCUSATE SODIUM 100 MG/10 ML UDCUP PO SCH ×2 (09:20→20:31)
[2020-12-05] MEDS: CHOLECALCIFEROL 1,000 UNIT TABLET PO SCH (09:20)
[2020-12-05] MEDS: OXYMETAZOLINE 0.05% NASAL SPRAY 15 ML BOTTLE BOTH NARES SCH (09:21)
[2020-12-05] MEDS: POLYETHYLENE GLYCOL POWDER 17 GM PACK PO SCH (09:22)
[2020-12-05] MEDS: PANTOPRAZOLE 40 MG VIAL IV SCH (09:23)
[2020-12-05] MEDS: cefTRIAXone 1,000 MG in SYRINGE 1 EACH IV SCH (09:25)
[2020-12-05] MEDS: MULTIVITAMIN LIQUID (CENTRUM) 60 ML BOTTLE NG SCH (10:41)
[2020-12-05] MEDS: ENOXAPARIN 40 MG/0.4 ML SYRINGE SUBCUT SCH (11:00)
[2020-12-05] MEDS: MIDAZOLAM 100 MG in SODIUM CHLORIDE 0.9% 80 ML IV PRN (11:49)
[2020-12-06] MEDS: INSULIN REGULAR 100 UNIT/ML SUBCUT SCH ×4 (00:13→19:06)
[2020-12-06] MEDS: METOCLOPRAMIDE 10 MG/2 ML VIAL IV SCH ×4 (00:13→17:44)
[2020-12-06] MEDS: methylPREDNISolone SOD SUC 40 MG/1 ML VIAL IV SCH ×3 (00:15→17:42)
[2020-12-06 03:36] LABS: ABG Base Excess 5.3 MMOL/L (-2.5-2.5); ABG HCO3 29.6 MMOL/L (20-26); ABG Oxygen Saturation 98.1 % (95-100); ABG PCO2 42.4 MM HG (35-48); ABG PH 7.462 (7.35-7.45); ABG TCO2 30.9 MMOL/L (23-27); Allen Test Positive; Pt O2 Delivery Device Ventilator
[2020-12-06 04:13] LABS: Basophils % 0.1 % (0.0-0.8); Hemoglobin 8.5 GM/DL (14.0-18.0); Immature Granulocytes % 2.9 %; Immature Granulocytes Absolute 0.38 #; Lymphocytes # 0.3 10*3/uL (1.4-4.0); Lymphocytes % 1.9 % (21.2-54.2); Mean Corpuscular HGB Conc 31.5 GM/DL (32-36); Mean Corpuscular Volume 101.1 FL (87-102); Mean Platelet Volume 11.7 FL (9.6-12.0); Monocytes % 2.3 % (1.7-12.7); NRBC # 0.04 10*3/uL; Neutrophils % 92.8 % (38.7-73.9); Platelet Count 140 T/CUMM (130-400); Red Blood Count 2.67 MC/CUMM (3.8-5.5); Red Cell Distribution Width 15.3 % (9.3-17.3); White Blood Count 13.2 T/CUMM (4-12)
[2020-12-06] MEDS: ALBUTEROL 2.5 MG/3 ML NEB RESP TX SCH ×6 (04:15→23:53)
[2020-12-06 04:32] LABS: Calcium 8.2 MG/DL (8.5-10.1); Osmolality,Calculated 314.3 MOS/KG (273-304)
[2020-12-06 04:33] LABS: Lymphocytes 4 % (20-55); Segmented Neutrophils 95 % (50-85); Total Cells Counted 100
[2020-12-06 04:34] LABS: Hypochromasia Slight; Macrocytosis Slight; Platelet Estimate Normal
[2020-12-06] MEDS: POLYETHYLENE GLYCOL POWDER 17 GM PACK PO SCH (08:07)
[2020-12-06] MEDS: DOCUSATE SODIUM 100 MG/10 ML UDCUP PO SCH ×2 (08:07→20:58)
[2020-12-06] MEDS: ESCITALOPRAM 10 MG TABLET PO SCH (08:08)
[2020-12-06] MEDS: METOPROLOL TARTRATE 25 MG TABLET PO SCH ×2 (08:08→20:58)
[2020-12-06] MEDS: ASPIRIN CHEW 81 MG TABLET PO SCH (08:08)
[2020-12-06] MEDS: CHOLECALCIFEROL 1,000 UNIT TABLET PO SCH (08:08)
[2020-12-06] MEDS: allopurinoL 300 MG TABLET PO SCH (08:08)
[2020-12-06] MEDS: ZINC SULFATE 220 MG CAPSULE PO SCH (08:09)
[2020-12-06] MEDS: ATORVASTATIN 40 MG TABLET PO SCH (08:09)
[2020-12-06] MEDS: TAMSULOSIN 0.4 MG CAPSULE PO SCH ×2 (08:09→20:58)
[2020-12-06] MEDS: PANTOPRAZOLE 40 MG VIAL IV SCH (08:10)
[2020-12-06] MEDS: cefTRIAXone 1,000 MG in SYRINGE 1 EACH IV SCH (08:35)
[2020-12-06] MEDS: MULTIVITAMIN LIQUID (CENTRUM) 60 ML BOTTLE NG SCH (08:39)
[2020-12-06] MEDS: DEXMEDETOMIDINE 200 MCG in SODIUM CHLORIDE 0.9% 48 ML IV PRN ×4 (09:06→23:09)
[2020-12-06] MEDS: ENOXAPARIN 40 MG/0.4 ML SYRINGE SUBCUT SCH (11:30)
[2020-12-06] MEDS: LORazepam 2 MG/1 ML VIAL IV PRN ×2 (17:45→23:40)
[2020-12-06] MEDS ORDERED: LORazepam 2 MG/1 ML VIAL ONE (23:39)
[2020-12-07] MEDS: INSULIN REGULAR 100 UNIT/ML SUBCUT SCH ×3 (00:10→15:19)
[2020-12-07] MEDS: METOCLOPRAMIDE 10 MG/2 ML VIAL IV SCH ×3 (00:11→13:04)
[2020-12-07] MEDS: methylPREDNISolone SOD SUC 40 MG/1 ML VIAL IV SCH ×2 (00:14→08:53)
[2020-12-07] MEDS: ALBUTEROL 2.5 MG/3 ML NEB RESP TX SCH ×4 (01:48→14:40)
[2020-12-07] MEDS: DEXMEDETOMIDINE 200 MCG in SODIUM CHLORIDE 0.9% 48 ML IV PRN ×2 (03:01→06:19)
[2020-12-07 03:53] LABS: ABG Base Excess 4.5 MMOL/L (-2.5-2.5); ABG HCO3 28.8 MMOL/L (20-26); ABG Oxygen Saturation 96.7 % (95-100); ABG PCO2 41.7 MM HG (35-48); ABG PH 7.457 (7.35-7.45); ABG PO2 93.2 MM HG (80-95); ABG TCO2 30.1 MMOL/L (23-27); Allen Test Positive; Pt O2 Delivery Device Ventilator
[2020-12-07 04:29] LABS: Basophils % 0.1 % (0.0-0.8); Eosinophils % 0.1 % (0.00-10.9); Hematocrit 25.1 VOL% (42.0-52.0); Hemoglobin 7.7 GM/DL (14.0-18.0); Immature Granulocytes % 2.1 %; Immature Granulocytes Absolute 0.18 #; Lymphocytes # 0.2 10*3/uL (1.4-4.0); Lymphocytes % 2.6 % (21.2-54.2); Mean Corpuscular HGB Conc 30.7 GM/DL (32-36); Mean Corpuscular Volume 101.2 FL (87-102); Mean Platelet Volume 11.3 FL (9.6-12.0); Monocytes % 2.6 % (1.7-12.7); NRBC # 0.02 10*3/uL; Neutrophils % 92.5 % (38.7-73.9); Platelet Count 113 T/CUMM (130-400); Red Blood Count 2.48 MC/CUMM (3.8-5.5); Red Cell Distribution Width 15.5 % (9.3-17.3); White Blood Count 8.5 T/CUMM (4-12)
[2020-12-07] MEDS ORDERED: LORazepam 2 MG/1 ML VIAL ONE (04:58)
[2020-12-07] MEDS: LORazepam 2 MG/1 ML VIAL IV PRN ×5 (05:08→16:15)
[2020-12-07 05:12] LABS: Calcium 7.7 MG/DL (8.5-10.1); Osmolality,Calculated 309.4 MOS/KG (273-304)
[2020-12-07 05:17] LABS: Hypochromasia Slight; Macrocytosis Slight
[2020-12-07 05:18] LABS: Platelet Estimate Adequate; Target Cells Slight
[2020-12-07 05:28] VITALS: BP 114/68
[2020-12-07] MEDS ORDERED: SALIVA SUBSTITUTE SPRAY 60 ML CAN SWISH/SWAL PRN (07:35)
[2020-12-07] MEDS: ESCITALOPRAM 10 MG TABLET PO SCH (08:36)
[2020-12-07] MEDS: ASPIRIN CHEW 81 MG TABLET PO SCH (08:36)
[2020-12-07] MEDS: ZINC SULFATE 220 MG CAPSULE PO SCH (08:49)
[2020-12-07] MEDS: METOPROLOL TARTRATE 25 MG TABLET PO SCH (08:50)
[2020-12-07] MEDS: CHOLECALCIFEROL 1,000 UNIT TABLET PO SCH (08:50)
[2020-12-07] MEDS: ATORVASTATIN 40 MG TABLET PO SCH (08:50)
[2020-12-07] MEDS: DOCUSATE SODIUM 100 MG/10 ML UDCUP PO SCH (08:50)
[2020-12-07] MEDS: TAMSULOSIN 0.4 MG CAPSULE PO SCH (08:50)
[2020-12-07] MEDS: allopurinoL 300 MG TABLET PO SCH (08:50)
[2020-12-07] MEDS: POLYETHYLENE GLYCOL POWDER 17 GM PACK PO SCH (08:52)
[2020-12-07] MEDS: PANTOPRAZOLE 40 MG VIAL IV SCH (08:53)
[2020-12-07] MEDS: MULTIVITAMIN LIQUID (CENTRUM) 60 ML BOTTLE NG SCH (09:16)
[2020-12-07] MEDS: DEXMEDETOMIDINE 400 MCG in SODIUM CHLORIDE 0.9% 96 ML IV PRN ×2 (11:57→16:00)
[2020-12-07] MEDS ORDERED: MIDAZOLAM 2 MG/2 ML VIAL ONE (12:09)
[2020-12-07] MEDS ORDERED: MIDAZOLAM 2 MG/2 ML VIAL IV ONE (13:00)
[2020-12-07] MEDS: ENOXAPARIN 40 MG/0.4 ML SYRINGE SUBCUT SCH (13:04)
== END 2020-12-07 16:20 | DRG 4 ==
LOC: N.ED 09:38 → SUATTDRO 11:55 → N.EDINP 11:55 → N.2E 14:05 → N.3E 11-13 13:32 → N.ICU 11-18 11:28
PROVIDERS: ADMIT Family Medicine; ATTEND Family Medicine
PROC: EGDWPEG (ICD-10-PCS; 2020-12-04 10:35)